=== PATIENT | female | born 1945 | race Caucasian/White ===

== ENCOUNTER 2017-11-13 22:12 | Emergency (ER) | payer MEDICARE, SELFPAY ==
[2017-11-13 22:14] VITALS: BP 205/95; PULSE 79; RESP 14; TEMP 36.8; O2SAT 96; BMI 28.4
--- NOTE | 2017-11-13 22:25 | CT_ITS ---
STUDY: CT ABDOMEN AND PELVIS WITH CONTRAST REASON FOR EXAM: Female, 72 years old. Back pain radiating to the anterior abdomen. RADIATION DOSAGE (If Supplied By Facility): CTDIvol = ( 14.90 ) mGy, DLP = ( 833.42 ) mGycm TECHNIQUE: Transaxial images were obtained from the dome of the diaphragm to the symphysis pubis without oral contrast. 100ML ml of Isovue 300 contrast was administered. Sagittal and coronal images were reconstructed. Individualized dose optimization techniques were used for this CT. COMPARISON: None. FINDINGS: The visualized lung bases are unremarkable. The visualized portions of the heart are within normal limits. There is mild fatty infiltration liver without focal mass. There is nonvisualization the gallbladder suggesting prior cholecystectomy. There is no biliary ductal dilatation. Normal spleen. Normal pancreas. Normal bilateral adrenal glands. There is a tiny cyst off the lower pole of an otherwise normal right kidney. Normal right ureter. Left kidney is enlarged. There is marked stranding of the perinephric fat and pararenal fascial planes. There is a small cortical cyst in the upper pole. There is marked hydronephrosis and ureterectasis to the UVJ where there is an obstructing 2 mm calculus (image 105, series 2). There is a type I hiatal hernia. Normal small intestine. Normal colon. The appendix is visualized and appears normal. There is diffuse atherosclerotic calcification of the abdominal aorta, without a demonstrated aneurysm. Normal inferior vena cava. Normal retroperitoneum. Normal urinary bladder. Normal vaginal cuff. There is no pelvic lymphadenopathy. No free air or free fluid is seen within the peritoneal cavity. Normal abdominal wall. There are diffuse degenerative changes of the visualized lumbar spine. CT/Abdomen/Pelvis W IV Cont ONLY IMPRESSION: 1. Left UVJ calculus with moderate obstructive uropathy. 2. Bilateral renal cysts. 3. Mild fatty infiltration of the liver. 4. Hiatal hernia. 5. Status post cholecystectomy and hysterectomy. Electronically Signed: Jak Solis DO at 23:46 EST Tel [phone], Service support ,
--- NOTE | 2017-11-13 22:26 | ED.VISSUMM ---
- ER Visit Summary Date of Service: 11/13/17 Chief Complaint: Back pain, abdominal pain History of Present Illness: The patient is a 72 F with history of htc-ttohlmy-nrzbxyfwo diabetes, hypertension, hyperlipidemia presents with atraumatic left-sided back pain that radiates into her left lower quadrant. Patient states she had the symptoms that began on Sunday. She states she has used an ice pack and it seemed to help. She denies any trauma. She states that tonight, after eating, the pain got worse. She states that it started radiating to her left lower quadrant. She describes the urge to move her bowels but has not been able to. She denies any fevers or chills. She states she has never had pain like this before. She denies any skin changes or rash. She has not found anything that has improved the pain. Patient has had prior hysterectomy and cholecystectomy, but no other back surgery. She denies any history of AAA. Physical Examination: Vital signs reviewed General: Well-nourished, well-developed Head: Normocephalic, atraumatic Eyes: Pupils equal and reactive, extraocular muscles intact Neck, supple, no lymphadenopathy Heart: Regular rate and rhythm Respiratory: No distress, clear bilaterally Abdomen: Soft, tender in the left lower quadrant without rebound or guarding, nondistended, no peritoneal signs Back: Nontender Extremities: Nontender, no edema, no cords Skin: Normal color no rash Neuro: Alert and oriented, no focal or lateralizing deficits Test Results: Screening labs relatively unremarkable. CT shows a 2 mm stone in the left right at the edge of the bladder with mild hydro-. Emergency Department Course and Treatment: She did have some tenderness in her left lower quadrant. Her symptoms were consistent with stone but she also had some constipation. I was concerned for diverticulitis. Patient was treated with IV analgesics and antiemetics with improvement of her symptoms. Screening labs are unremarkable. Her CT does demonstrate a 2 mm stone at the left bladder junction with mild hydro-. At this time, I do feel that the patient is safe for outpatient therapy. Her pain is controlled. She is tolerating p.o. She will be given a short course of analgesics and antiemetics. She is given urology follow-up. She was counseled on concerning symptoms and reasons to return. The patient will be discharged home. Treatment Plan: [] Disposition: Discharge Impression:. 2 mm left urolithiasis with mild hydronephrosis This note was generated with [employer] dictation software. It may contain incorrect words, spelling, and punctuation that were not noted in review of the chart prior to signing ED Disposition - Plan for ED Patient: Chief Complaint: Back Instructions: ED Stone Renal W Colic Prescriptions: Hydrocodone Bitart/Apap 5-325 [[place] 5/325] 1 tab PO Q6H PRN PRN 2 Days #6 tab PRN Reason: Pain Ondansetron [Zofran Odt] 4 mg PO Q8H PRN PRN #10 tab PRN Reason: Nausea Referrals: Wiley Goncalves MD [STAFF PHYSICIAN] -
[2017-11-13 22:42] LABS: Absolute Lymphocyte Count 1.43 X10^3/ul (0.83-4.51); Absolute Neutrophil Count 5.9 X10^3/uL (2.0-7.7); Basophil# 0.02 X10^3/uL; Basophil% 0.3 % (0-1); Eosinophil# 0.06 X10^3/uL; Eosinophils% 0.8 % (0-5); Hemoglobin 12.2 g/dl (12.0-15.0); Lymphocyte # 1.43 X10^3/ul (4.0); Lymphocyte % 18.2 % (19-41); Mean Corp Hgb Conc 32.1 g/gl (32-36); Mean Corpuscular Hgb 25.7 pg (27.0-32.0); Mean Platelet Vol. 9.4 fl (6.2-12.0); Monocyte# 0.44 X10^3/uL; Monocyte% 5.6 % (0-10); Neutrophil # 5.86 X10^3/uL (2.7-7.7); Neutrophil % 74.7 % (47-70); Platelet Count 196 K/mm3 (150-450); RBC Distribution Width CV 13.2 % (11.6-14.6); RBC Distribution Width SD 38.2 fl (35.1-43.9); Red Blood Count 4.75 M/mm3 (4.2-5.4); White Blood Count 7.8 K/mm3 (4.4-11.0)
[2017-11-13] MEDS: 0.9% Normal Saline 1,000 ML 1000 ML IV (22:43)
[2017-11-13] MEDS: Ondansetron 4 MG/2 ML Vial IV (22:43)
[2017-11-13 22:45] LABS: POSITIVE COUNT NO; POSITIVE DIFFERENTIAL NO; POSITIVE MORPHOLOGY NO
[2017-11-13 22:57] LABS: ALB/GLOB Ratio 1.3 RATIO (0.9-2.4); AST(SGOT) 16 U/L (15-37); Alanine Aminotransfer ALT/SGPT 21 U/L (13-56); Albumin, Serum 3.9 g/dL (3.2-5.0); Alkaline Phosphatase 105 U/L (45-117); Anion Gap 6 (5-15); BUN 20 mg/dL (7-18); BUN/Creat Ratio 18.9 RATIO (10-20); Calcium,Total 10.3 mg/dL (8.5-10.1); Chloride 106 mmol/L (98-107); Creatinine, Serum 1.06 mg/dL (0.55-1.02); EST Glomerular Filtration Rate 54 mL/min (>60); Est Glom Filt Rate - Afr Amer 66 mL/min (>60); Estimated Creatinine Clearance 42.04 ml/min; Globulin 3.1 g/dL (2.2-4.2); Glucose 243 mg/dL (74-106); Lipase 337 U/L (73-393); Potassium 4.1 mmol/L (3.5-5.1); Sodium Level 140 mmol/L (136-145)
[2017-11-13 22:57] LABS: Bacteria 0 SEEN /hpf (None Seen); Mucous, Urine 0 SEEN /hpf (<or=2+)
[2017-11-13 22:58] LABS: Color, Urine Straw (Yellow); Glucose, Dipstick 250 mg/dl (Normal); Ketone-Dipstick Negative (Negative); Leukocyte Esterase-Dipstick 25 /ul (Negative); Nitrite-Dipstick Negative (Negative); Occult Blood-Urine 10 /ul (Negative); Protein-Dipstick Negative (Negative); Urine Bilirubin Dipstick Negative (Negative); Urine Clarity Clear (Clear); Urine Urobilinogen Normal (Normal)
[2017-11-13 23:04] LABS: Squamous Epithelial Cells - UA 0-5 SEEN /hpf (5-10)
[2017-11-13 23:05] LABS: Red Blood Cells-Urine 0-5 SEEN /hpf (0-5); White Blood Cells 0-5 SEEN /hpf (0-5)
[2017-11-14] MEDS: HYDROcodone Bitartrate/Apap 5/325 Tablet PO (00:07)
[2017-11-14] MEDS: Ondansetron ODT 4 MG Tablet PO (00:08)
[2017-11-14 00:10] VITALS: BP 164/88; PULSE 81; RESP 18; O2SAT 93
== END 2017-11-14 00:11 | disposition home or self-care (01) ==
PROVIDERS: Emergency Provider Emergency Medicine; Family Provider Family Medicine; PCP Family Medicine
DX: N13.2 Hydronephrosis with renal and ureteral calculous obstruction (principal); E11.9 Type 2 diabetes mellitus without complications; I10 Essential (primary) hypertension; E78.5 Hyperlipidemia, unspecified; Z90.710 Acquired absence of both cervix and uterus; Z90.49 Acquired absence of other specified parts of digestive tract
CPT/HCPCS: 74177; 80053; 81001; 83690; 85025; 96361; 96374; 96375; 99284; J7030; Q9967; A4216; J2405

== ENCOUNTER 2018-06-09 20:11 | Emergency (ER) | payer MEDICARE, OTHER, SELFPAY ==
[2018-06-09 20:11] VITALS: BP 149/82; PULSE 83; RESP 18; TEMP 36.4; O2SAT 95; BMI 27.8
--- NOTE | 2018-06-09 20:22 | RAD_ITS ---
STUDY: X-RAY - LEFT FOOT CLINICAL: Female, 72 years old. Pain after fall. TECHNIQUE: 3 view(s) of the foot. COMPARISON: None. FINDINGS: There is generalized osteopenia. There is superior and inferior calcaneal spur Normal visualized subtalar, talonavicular, calcaneocuboid, tarsal and tarsometatarsal articulations. Normal metatarsi. Normal metatarsophalangeal joint of the great toe. Normal tibial and fibular sesamoid bones. Normal interphalangeal joint of the great toe. Normal phalanges of the great toe. Normal second through fifth metatarsophalangeal joints. Normal interphalangeal joints and phalanges of the lesser toes. The soft tissue structures are unremarkable. RAD/Foot min 3 Views IMPRESSION: No acute pathology. Electronically Signed: Issac Coles MD at 20:54 EDT , Service support ,
--- NOTE | 2018-06-09 20:28 | RAD_ITS ---
STUDY: X-RAY - LEFT KNEE REASON FOR EXAM: Female, 72 years old. Pain after fall TECHNIQUE: Four view(s) of the knee were obtained. COMPARISON: None. FINDINGS: There are small osteophytes on the distal femur. There are small osteophytes on the tibial plateau. There is moderate narrowing of the medial femorotibial compartment. There is mild narrowing of the lateral femorotibial compartment. There is chondrocalcinosis in both femorotibial compartments. There is mild degenerative arthrosis of the patellofemoral articulation. There is no fullness above the patella. The soft tissue structures are unremarkable. RAD/Knee 4 or More Views IMPRESSION: No acute abnormalities are seen in the left knee. There are moderate degenerative changes in the left knee with a medial predominance. Electronically Signed: Celia Moreno MD at 21:07 EDT Tel Direct: [phone], Service support ,
[2018-06-09 21:48] VITALS: BP 144/95; PULSE 82; RESP 14; O2SAT 94
--- NOTE | 2018-06-09 22:17 | RAD_ITS ---
STUDY: X-RAY - LEFT ANKLE REASON FOR EXAM: Female, 72 years old. Pain of the left ankle after falling. TECHNIQUE: 3 view(s) of the ankle. COMPARISON: None. FINDINGS: Normal visualized distal tibia and fibula. Normal medial and lateral malleoli. Normal tibiotalar articulation and ankle mortise. Normal talus. Dorsal enthesophyte and plantar spur of the calcaneus. The visualized subtalar, talonavicular, calcaneocuboid and tarsal articulations are normal. Lateral swelling. RAD/Ankle min 3 Views IMPRESSION: Lateral swelling without underlying fracture or dislocation. Electronically Signed: Charlee Galloway MD at 23:27 EDT , Service support ,
--- NOTE | 2018-06-09 23:59 | ED.DCSUM_ITS ---
- ER Visit Summary Date of Service: 06/09/18 Chief Complaint: Left lower extremity pain History of Present Illness: The patient is a 72 F presenting with left lower extremity pain. Patient was walking down the steps today she fell down approximately 3 steps after losing her footing. She fell forward. She did not hit her head or lose consciousness. She is not on blood thinners. This occurred several hours ago. She complains of persistent pain in the left lower extremity. She has taken ibuprofen today. Denies other injuries. Physical Examination: Vitals are stable. Patient is afebrile. Alert no acute distress. HEENT exam is unremarkable. Neck is nontender Lungs are clear and equal bilaterally. Heart is regular rate and rhythm. Abdomen is soft nontender nondistended. Extremities left ankle mild diffuse tenderness with mild swelling. AFROM. No pain with log rolling. Normal pulse. Skin is warm and dry. No focal neurologic deficit. Remainder of exam is unremarkable. Emergency Department Course and Treatment: X-ray of the left foot shows no acute process. X-ray left ankle shows lateral swelling without underlying fracture or dislocation. X-ray left knee shows no acute process. Patient is able to ambulate in the emergency department. She is advised to follow-up with her primary care physician. Advised return to ED for worsening complaints. Disposition: Discharge home Impression: Status post mechanical fall, left ankle injury This note was generated with [employer] dictation software. It may contain incorrect words, spelling, and punctuation that were not noted in review of the chart prior to signing ED Disposition - Plan for ED Patient: Chief Complaint: Lower Extremity Injury Referrals: Corazon Sharp [Primary Care Provider] -
--- NOTE | 2018-06-10 00:06 | ED.DEP ---
ED Disposition - Plan for ED Patient: Chief Complaint: Lower Extremity Injury Instructions: ED Sprain Ankle W X Ray Referrals: Corazon Sharp [Primary Care Provider] -
[2018-06-10 00:25] VITALS: BP 156/87; PULSE 60; RESP 15; O2SAT 98
== END 2018-06-10 00:26 | disposition home or self-care (01) ==
PROVIDERS: Emergency Provider Emergency Medicine; Family Provider Family Medicine; PCP Family Medicine
DX: S99.912A Unspecified injury of left ankle, initial encounter (principal); W10.9XXA Fall (on) (from) unspecified stairs and steps, initial encounter; Y93.89 Activity, other specified; Y92.9 Unspecified place or not applicable; Y99.9 Unspecified external cause status; E11.9 Type 2 diabetes mellitus without complications; I10 Essential (primary) hypertension; E78.00 Pure hypercholesterolemia, unspecified
CPT/HCPCS: 73564; 73610; 73630; 99283

== ENCOUNTER → 2018-07-24 09:03 | Outpatient (CLI) | payer MEDICARE, SELFPAY ==
[2018-07-24 11:59] LABS: Absolute Lymphocyte Count 1.82 X10^3/ul (0.83-4.51); Absolute Neutrophil Count 3.5 X10^3/uL (2.0-7.7); Basophil# 0.02 X10^3/uL; Basophil% 0.3 % (0-1); Eosinophil# 0.12 X10^3/uL; Hematocrit 37.2 % (37-47); Hemoglobin 11.7 g/dl (12.0-15.0); Lymphocyte # 1.82 X10^3/ul (4.0); Lymphocyte % 29.7 % (19-41); Mean Corp Hgb Conc 31.5 g/gl (32-36); Mean Corpuscular Volume 82.7 fL (81-99); Mean Platelet Vol. 11.2 fl (6.2-12.0); Monocyte# 0.66 X10^3/uL; Monocyte% 10.8 % (0-10); Platelet Count 207 K/mm3 (150-450); RBC Distribution Width CV 13.9 % (11.6-14.6); RBC Distribution Width SD 41.9 fl (35.1-43.9); White Blood Count 6.1 K/mm3 (4.4-11.0)
[2018-07-24 12:00] LABS: POSITIVE COUNT NO; POSITIVE DIFFERENTIAL NO; POSITIVE MORPHOLOGY NO
[2018-07-24 12:17] LABS: T3 Total - Triiodothyronine 0.79 ng/mL (0.6-1.81); Vitamin B12 440 pg/mL (211-911)
[2018-07-24 12:23] LABS: ALB/GLOB Ratio 1.2 RATIO (0.9-2.4); AST(SGOT) 10 U/L (15-37); Alanine Aminotransfer ALT/SGPT 22 U/L (13-56); Albumin, Serum 3.6 g/dL (3.2-5.0); Alkaline Phosphatase 102 U/L (45-117); Anion Gap 7 (5-15); BUN 26 mg/dL (7-18); BUN/Creat Ratio 24.1 RATIO (10-20); Calcium,Total 10.1 mg/dL (8.5-10.1); Chloride 108 mmol/L (98-107); Cholesterol 131 mg/dL (200); Creatinine, Serum 1.08 mg/dL (0.55-1.02); EST Glomerular Filtration Rate 53 mL/min (>60); Est Glom Filt Rate - Afr Amer 64 mL/min (>60); Ferritin 22 ng/mL (8-252); Globulin 3.1 g/dL (2.2-4.2); Glucose 150 mg/dL (74-106); High Density Lipoprotein 37 mg/dL; Iron 49 ug/dL (50-170); Potassium 4.4 mmol/L (3.5-5.1); Protein, Total 6.7 g/dL (6.4-8.2); Sodium Level 142 mmol/L (136-145); T4 Free Direct 1.15 ng/dL (0.76-1.46); Thyroid Stim Hormone (TSH) 1.79 uIU/mL (0.358-3.74); Triglycerides 313 mg/dL; Very Low Density Lipoprotein 63 mg/dL (5-40)
== END ==
PROVIDERS: Family Provider Family Medicine; PCP Family Medicine; Visit Provider Family Medicine
DX: D64.9 Anemia, unspecified (principal); E11.9 Type 2 diabetes mellitus without complications; E55.9 Vitamin D deficiency, unspecified; E78.5 Hyperlipidemia, unspecified; I10 Essential (primary) hypertension; R53.83 Other fatigue; E53.8 Deficiency of other specified B group vitamins
CPT/HCPCS: 36415; 80053; 80061; 82306; 82607; 82728; 82746; 83540; 84439; 84443; 84480; 85025

== ENCOUNTER 2018-12-25 15:01 | Emergency (ER) | payer MEDICARE, SELFPAY ==
[2018-12-25 15:02] VITALS: BP 197/89; PULSE 78; RESP 16; TEMP 36.2; BMI 27.1
--- NOTE | 2018-12-25 15:24 | RAD_ITS ---
STUDY: X-RAY - LEFT KNEE REASON FOR EXAM: Female, 73 years old. Pain. Fall. TECHNIQUE: 4 view(s) of the knee. COMPARISON: None. FINDINGS: There is demineralization of the visualized distal femur. There is demineralization of the tibia and fibula. Normal proximal tibiofibular articulation. There is no demonstrated fracture. There is mild degenerative arthrosis of the medial femorotibial compartment. There is chondrocalcinosis of the lateral femorotibial compartment. There is mild degenerative arthrosis of the patellofemoral articulation. The soft tissue structures are unremarkable. RAD/Knee 4 or More Views IMPRESSION: Arthritic change with chondrocalcinosis. Electronically Signed: Isaias Lamb MD at 16:38 EDT , Service support ,
--- NOTE | 2018-12-25 15:24 | CT_ITS ---
STUDY: CT BRAIN WITHOUT CONTRAST REASON FOR EXAM: Female, 73 years old. History of fall. RADIATION DOSAGE (If Supplied By Facility): CTDIvol = ( 44.99 ) mGy, DLP = ( 779.24 ) mGycm TECHNIQUE: Transaxial CT imaging of the brain was performed without administration of intravenous contrast material. Individualized dose optimization techniques were used for this CT. COMPARISON: No relevant priors. FINDINGS: Normal soft tissue structures. Normal calvarium. There is mild cerebral atrophy with widening of the extra-axial spaces and ventricular dilatation. There are areas of decreased attenuation within the white matter tracts of the supratentorial brain, consistent with microvascular disease changes. Normal basal ganglia and thalami. Normal brainstem. Normal cerebellum. There is no intracranial hemorrhage. There are no findings of an acute ischemic infarction. Normal visualized paranasal sinuses. CT/Brain/Head without Contrast IMPRESSION: Chronic involutional changes of the brain. Electronically Signed: Jesse Grider, at 16:03 EDT , Service support ,
--- NOTE | 2018-12-25 15:24 | CT_ITS ---
STUDY: CT CERVICAL SPINE WITHOUT CONTRAST REASON FOR EXAM: Female, 73 years old. Status post fall hitting nose on ground RADIATION DOSAGE (If Supplied By Facility): CTDIvol = ( 21.62 ) mGy, DLP = ( 527.74 ) mGycm TECHNIQUE: High resolution transaxial imaging was performed without contrast material. Sagittal and coronal images were reconstructed. Individualized dose optimization techniques were used for this CT. COMPARISON: None FINDINGS: Normal craniovertebral junction. There are degenerative changes of the anterior atlantoaxial articulation. Normal odontoid process. Normal cervical lordosis. Normal vertebral bodies and posterior osseous elements. There is no acute fracture. C2-3: Disc bulge. Normal central canal and intervertebral neuroforamina. C3-4: Disc bulge. Normal central canal and intervertebral neuroforamina. C4-5: Disc space narrowing with endplate changes. Disc bulge and spurring the right narrowing the right lateral recess. Normal central canal and intervertebral neuroforamina. C5-6: Disc bulge and spurring flattening the thecal sac. Facet spurring. Normal central canal and intervertebral neuroforamina. C6-7: Disc space narrowing with endplate changes. Disc bulge and spurring flattening thecal sac. Uncovertebral spurring with mild foraminal narrowing. C7-T1: Normal endplates. Normal disc height and morphology. Normal central canal and intervertebral neuroforamina. Normal visualized soft tissue structures. CT/Spine Cervical without Contras IMPRESSION: Multilevel degenerative changes, as described above. Electronically Signed: Isaias Lamb MD at 16:23 EDT , Service support ,
--- NOTE | 2018-12-25 15:31 | ED.DCSUM_ITS ---
- ER Visit Summary Date of Service: 12/25/18 Chief Complaint: Fall History of Present Illness: The patient is a 73 F who presents the emergency department following a mechanical fall. [place] the bank on the sidewalk when there is a lifted area of the sidewalk concrete and she tripped over it and fell forward. She landed on her knees her palms and struck her face. She states she broke her glasses. She is notes abrasion to the nose and tenderness. No loss of conscious. She has bilateral palm abrasions and bilateral knee pain and abrasions notes that her neck is sore in the right side particularly with movement. The patient was able to get up and was assisted to her vehicle though she notes is painful to walk. Not on any blood thinners Physical Examination: Afebrile vital signs are stable Gen: Well-nourished well-developed Head: Normocephalic nasal abrasion and contusion no septal hematoma Eyes: Perrl EOMI ENT: TMs clear no rhinorrhea moist mucous membranes Neck: Supple no lymphadenopathy no JVD there is palpation in the mid cervical region and right paraspinal musculature CVS: Regular rate rhythm no murmurs normal S1-S2 Respiratory: No distress clear to auscultation bilaterally chest nontender Abdomen: Soft nontender nondistended normal bowel sounds no masses Back: Nontender Extremity: There is bilateral thenar eminence abrasions. There is full range of motion of the thumb. There are bilateral knee contusions and abrasions. The right knee injury appears directly over the patella while the left is inferior medially to the patella. Extensor mechanisms are intact. Skin: Normal color no rash Neuro: alert orientated ?3 CN II-XII intact normal strength sensation reflexes gait cerebellar Psych: Normal affect normal mood Test Results: CT the head and cervical spine was obtained. Bilateral knee films were also obtained. These were negative for fracture or for hemorrhage. Emergency Department Course and Treatment: Wounds were cleansed and dressed. The right knee which is her most painful was placed in an Miles wrap as well. She is given Tylenol for pain. Recommend supportive care return if worsening or concerns Impression: 1. Mechanical fall 2. Facial and nose contusion and abrasion 3. Bilateral hand abrasion and contusion 4. Bilateral knee contusion and abrasion 5. Cervical muscle strain This note was generated with [employer] software. It may contain incorrect words, spelling, and punctuation that were not noted in review of the chart prior to signing ED Disposition - Plan for ED Patient: Disposition: Home or Assisted Living Instructions: ED Contusion Face, ED Abrasion Referrals: Corazon Sharp [Primary Care Provider] - 1 Week if not improving
[2018-12-25] MEDS: Acetaminophen 500 MG Tablet 1000 MG PO (15:35)
--- NOTE | 2018-12-25 16:04 | RAD_ITS ---
STUDY: X-RAY - RIGHT KNEE REASON FOR EXAM: Female, 73 years old. Pain. Fall TECHNIQUE: 4 view(s) of the knee. COMPARISON: None. FINDINGS: There is demineralization of the visualized distal femur. Spurring of the medial femoral condyle. There is demineralization of the tibia and fibula. Normal proximal tibiofibular articulation. Chondrocalcinosis of the medial femorotibial compartment and lateral femorotibial compartment. Normal patellofemoral articulation. The soft tissue structures are unremarkable. RAD/Knee 4 or More Views IMPRESSION: No acute fracture. Chondrocalcinosis. Electronically Signed: Isaias Lamb MD at 16:36 EDT , Service support ,
[2018-12-25 16:47] VITALS: BP 180/87; PULSE 83; RESP 16; O2SAT 92
== END 2018-12-25 16:57 | disposition home or self-care (01) ==
PROVIDERS: Emergency Provider Emergency Medicine; Family Provider Family Medicine; PCP Family Medicine
DX: S00.33XA Contusion of nose, initial encounter (principal); S60.222A Contusion of left hand, initial encounter; S60.221A Contusion of right hand, initial encounter; S80.02XA Contusion of left knee, initial encounter; S80.01XA Contusion of right knee, initial encounter; S16.1XXA Strain of muscle, fascia and tendon at neck level, initial encounter; W01.198A Fall on same level from slipping, tripping and stumbling with subsequent striking against other object, initial encounter; Y93.89 Activity, other specified; Y92.480 Sidewalk as the place of occurrence of the external cause; Y99.9 Unspecified external cause status; E11.9 Type 2 diabetes mellitus without complications; I10 Essential (primary) hypertension; E78.00 Pure hypercholesterolemia, unspecified; K21.9 Gastro-esophageal reflux disease without esophagitis; F32.9 Major depressive disorder, single episode, unspecified; F41.9 Anxiety disorder, unspecified
CPT/HCPCS: 70450; 72125; 73564; 99283

== ENCOUNTER → 2018-12-31 14:14 | Outpatient (CLI) | payer MEDICARE, SELFPAY ==
[2018-12-25 15:02] VITALS: BMI 27.1
--- NOTE | 2018-12-31 14:23 | RAD_ITS ---
STUDY: X-RAY - LEFT WRIST REASON FOR EXAM: Pain, bruising and swelling, fell last Sunday. TECHNIQUE: 3 view(s) of the wrist were obtained. COMPARISON: None. FINDINGS: There is osteopenia. Normal visualized distal radius and ulna. Normal radiocarpal articulation. Normal distal radioulnar articulation. Normal carpal bones. Normal carpal articulations. Normal carpometacarpal articulation of the thumb. Normal second through fifth carpometacarpal articulations. Normal visualized metacarpal bones. There is chondrocalcinosis in the triangular fibrocartilage and lunotriquetral ligament. RAD/Wrist min 3 Views IMPRESSION: Osteopenia. Chondrocalcinosis. No demonstrated fracture. Electronically Signed: Patrice Bhatt MD at 15:42 EDT Tel , Service support ,
== END ==
PROVIDERS: Family Provider Family Medicine; PCP Family Medicine; Referring Provider Family Medicine; Visit Provider Family Medicine
DX: M79.89 Other specified soft tissue disorders (principal); W19.XXXA Unspecified fall, initial encounter; R52 Pain, unspecified
CPT/HCPCS: 73110

== ENCOUNTER → 2019-06-27 07:54 | Outpatient (CLI) | payer MEDICARE, SELFPAY ==
[2019-06-27 08:27] LABS: Absolute Lymphocyte Count 1.64 X10^3/uL (0.83-4.51); Absolute Neutrophil Count 3.3 X10^3/uL (2.0-7.7); Basophil# 0.03 X10^3/uL; Basophil% 0.5 % (0-1); Eosinophil# 0.07 X10^3/uL; Eosinophils% 1.3 % (0-5); Hematocrit 35.3 % (37-47); Hemoglobin 11.3 g/dL (12.0-15.0); Lymphocyte # 1.64 X10^3/ul (4.0); Lymphocyte % 29.4 % (19-41); Mean Corpuscular Volume 81.3 fL (81-99); Mean Platelet Vol. 9.9 fl (6.2-12.0); Monocyte# 0.53 X10^3/uL; Monocyte% 9.5 % (0-10); NRBC Flagged by Analyzer 0 % (0-5); Neutrophil # 3.29 X10^3/uL (2.7-7.7); Neutrophil % 59.1 % (47-70); Platelet Count 208 K/mm3 (150-450); RBC Distribution Width CV 13.3 % (11.6-14.6); Red Blood Count 4.34 M/mm3 (4.2-5.4); White Blood Count 5.6 K/mm3 (4.4-11.0)
[2019-06-27 08:46] LABS: Microalbumin,Random Urine 27.9 mg/L (NO RANGE EST.); Microalbumin:Creatinine Ratio 30.1 mg/g CRE (<30 mg/g CRE)
[2019-06-27 08:59] LABS: Hemoglobin A1c 6.1 % (4.2-6.3)
[2019-06-27 09:01] LABS: ALB/GLOB Ratio 1.1 RATIO (0.9-2.4); AST(SGOT) 13 U/L (15-37); Alanine Aminotransfer ALT/SGPT 17 U/L (13-56); Albumin, Serum 3.4 g/dL (3.2-5.0); Alkaline Phosphatase 97 U/L (45-117); Anion Gap 6 (5-15); BUN 13 mg/dL (7-18); BUN/Creat Ratio 15.7 RATIO (10-20); Calcium,Total 10.1 mg/dL (8.5-10.1); Chloride 108 mmol/L (98-107); Cholesterol 201 mg/dL (200); Creatinine, Serum 0.83 mg/dL (0.55-1.02); EST Glomerular Filtration Rate 72 mL/min (>60); Est Glom Filt Rate - Afr Amer 87 mL/min (>60); Globulin 3.1 g/dL (2.2-4.2); Glucose 144 mg/dL (74-106); High Density Lipoprotein 38 mg/dL; Iron 43 ug/dL (50-170); Potassium 3.6 mmol/L (3.5-5.1); Protein, Total 6.5 g/dL (6.4-8.2); Sodium Level 143 mmol/L (136-145); Triglycerides 410 mg/dL
[2019-06-27 09:03] LABS: Vitamin D,25 Hydroxy 11.7 ng/mL (29.95-100.01)
== END ==
PROVIDERS: Family Provider Family Medicine; PCP Family Medicine; Referring Provider Family Medicine; Visit Provider Family Medicine
DX: E11.9 Type 2 diabetes mellitus without complications (principal); I10 Essential (primary) hypertension; E55.9 Vitamin D deficiency, unspecified; E78.5 Hyperlipidemia, unspecified; D64.9 Anemia, unspecified; Z51.81 Encounter for therapeutic drug level monitoring
CPT/HCPCS: 36415; 80053; 80061; 82043; 82306; 82570; 83036; 83540; 85025

== ENCOUNTER → 2020-08-19 10:03 | Outpatient (CLI) | payer MEDICARE, SELFPAY ==
[2020-08-19 12:26] LABS: Absolute Lymphocyte Count 1.71 X10^3/uL (0.83-4.51); Absolute Neutrophil Count 3.1 X10^3/uL (2.0-7.7); Basophil# 0.04 X10^3/uL; Basophil% 0.7 % (0-1); Eosinophil# 0.08 X10^3/uL; Eosinophils% 1.5 % (0-5); Hematocrit 36.4 % (37-47); Hemoglobin 11.7 g/dL (12.0-15.0); Lymphocyte # 1.71 X10^3/ul (4.0); Lymphocyte % 31.5 % (19-41); Mean Corp Hgb Conc 32.1 g/dL (32-36); Mean Corpuscular Hgb 27.1 pg (27.0-32.0); Mean Corpuscular Volume 84.3 fL (81-99); Mean Platelet Vol. 11.2 fl (6.2-12.0); Monocyte# 0.51 X10^3/uL; Monocyte% 9.4 % (0-10); NRBC Flagged by Analyzer 0 % (0-5); Neutrophil # 3.07 X10^3/uL (2.7-7.7); Neutrophil % 56.5 % (47-70); Platelet Count 199 K/mm3 (150-450); RBC Distribution Width CV 12.8 % (11.6-14.6); RBC Distribution Width SD 38.9 fl (35.1-43.9); Red Blood Count 4.32 M/mm3 (4.2-5.4); White Blood Count 5.4 K/mm3 (4.4-11.0)
[2020-08-19 12:50] LABS: ALB/GLOB Ratio 1.1 RATIO (0.9-2.4); AST(SGOT) 14 U/L (15-37); Alanine Aminotransfer ALT/SGPT 28 U/L (13-56); Albumin, Serum 3.6 g/dL (3.2-5.0); Alkaline Phosphatase 124 U/L (45-117); Anion Gap 7 (5-15); BUN 30 mg/dL (7-18); Calcium,Total 10.9 mg/dL (8.5-10.1); Chloride 108 mmol/L (98-107); EST Glomerular Filtration Rate 47 mL/min (>60); Est Glom Filt Rate - Afr Amer 57 mL/min (>60); Ferritin 22 ng/mL (8-252); Globulin 3.2 g/dL (2.2-4.2); Glucose 199 mg/dL (74-106); Iron 58 ug/dL (50-170); Potassium 4.2 mmol/L (3.5-5.1); Protein, Total 6.8 g/dL (6.4-8.2); Sodium Level 138 mmol/L (136-145)
== END ==
PROVIDERS: PCP Family Medicine; Visit Provider Family Medicine
DX: I50.9 Heart failure, unspecified (principal); D50.9 Iron deficiency anemia, unspecified; N18.4 Chronic kidney disease, stage 4 (severe)
CPT/HCPCS: 36415; 80053; 82728; 83540; 85025

== ENCOUNTER → 2020-09-16 07:54 | Outpatient (CLI) | payer MEDICARE, SELFPAY ==
--- NOTE | 2020-09-16 08:16 | BI_ITS ---
MAMMOGRAPHY - BILATERAL SCREENING REASON FOR EXAM: Female, 74 years old. Routine annual screening examination. PERTINENT HISTORY: Non-contributory. History of prior bilateral excisional breast biopsies. TECHNIQUE: Digital bilateral breast john (3D mammographic acquisition) in the CC and MLO projections. 2-D mediolateral oblique (MLO) and craniocaudad (CC) views of both breasts were obtained. CAD: Full Field Digital Mammography with Computer Added Detection was performed. COMPARISON: Comparison is made with prior study dated 10/15/2014. FINDINGS: Breast Composition: The breasts are heterogeneously dense, which may obscure small masses. There are no dominant masses or suspicious calcifications. No other significant abnormalities are identified. There has been no significant change since the prior study. BI/SCREEN MAMM (CAD) W/JOHN BILAT IMPRESSION: Stable bilateral screening mammogram. Yearly follow-up mammogram recommended. (A) ASSESSMENT CATEGORY: BIRADS Category 1: Negative. A letter regarding these results will be sent to the patient by the facility within 30 days. Approximately 10% of breast cancers are not detected by mammography. A normal mammogram should not delay biopsy of a clinically suspicious abnormality. [id number] Electronically Signed: Jesse Grider, at 10:24 EST , Service support ,
== END ==
PROVIDERS: PCP Family Medicine; Referring Provider Family Medicine; Visit Provider Family Medicine
DX: Z12.31 Encounter for screening mammogram for malignant neoplasm of breast (principal)
CPT/HCPCS: 77063; 77067

== ENCOUNTER → 2020-12-17 13:12 | Outpatient (CLI) | payer MEDICARE, SELFPAY ==
--- NOTE | 2020-12-17 13:23 | RAD_ITS ---
STUDY: X-RAY - RIGHT SHOULDER REASON FOR EXAM: Female, 75 years old. R SHOULDER PAIN TECHNIQUE: 4 view(s) of the shoulder. COMPARISON: None. FINDINGS: Normal glenohumeral articulation. Normal acromioclavicular joint. Normal acromion. Normal humeral head and visualized proximal humerus. The soft tissue structures are unremarkable. There is no demonstrated fracture. Normal visualized pulmonary apex. RAD/Shoulder min 2 Views IMPRESSION: Normal x-ray examination of the shoulder. Electronically Signed: Pedrito Ferguson MD at 23:54 EDT , Service support ,
== END ==
PROVIDERS: PCP Family Medicine; Referring Provider Family Medicine; Visit Provider Family Medicine
DX: M25.511 Pain in right shoulder (principal); Z91.81 History of falling
CPT/HCPCS: 73030

== ENCOUNTER 2021-01-27 09:30 | Outpatient (RCR) | payer MEDICARE, SELFPAY ==
--- NOTE | 2021-01-03 15:39 | HP.PTEVAL_ITS ---
Patient's Visit Information EULALIA LUONG is a 75 year old F referred to Physical Therapy by Dr. Corazon Sharp DO with a diagnosis of R shoulder pain. Date of Evaluation: 01/03/21 Physical Therapist: Mohit Nuno DPT - Visit Plan Frequency: 2x /Week Duration: 4 Weeks Plan: R shoulder strengthening and scapular stabilizing exercises; isometrics/progress to resistance strengthening as tolerated. - Subjective Pt. has R shoulder pain ever since she fell in Jun, she was trying to rearrange her bedroom and fell while moving her mattress. She has a recent dx of dementia. Pain has continued to worsen since June. She tends to sleep with arms up above head, and she has tried to limit that. Pain is located along the lateral portion of shoulder off of the acromion and is increased when abducting/flexing shoulder. Mopping and doing dishes will cause her pain to increase. BioFreeze has helped decrease her pain. No numbness or tingling into arm/hands. She states the pain is constant. She does not work currently. Goal: To decrease her pain in the R shoulder. - Pain R shoulder Pain Intensity (Out of 10): 8 Pain Intensity Range: 8, 10 - Objective Neuro: WNL sensation bilaterally; biceps tendon reflex 2/3. ROM: AROM: L shouler Flex: 145 degrees R shoulder Flex: 150 degrees L shoulder abd: 148 degrees R shoulder abd: 125 degrees L ER: 43 degrees R ER: 38 degrees. Painful in R shoulder when lowering arm down from flex or abduction. MMT: L shoulder flex: 5/5 R shoulder flex: 3+/5 L shoulder abd: 5/5 R shoulder abd: 3+/5 L shoulder ER: 3+/5 R shoulder ER: 4-/5 L shoulder IR: 5-/5 R shoulder IR: 5-/5. palpation: Tender to light touch at AC joint, supraspinatus tendon region. empty can: Postive. Marco graff: positive. Gave her HEP program on isometric strengthening of the R shoulder; ER rotation hold and flexion increased her pain. - Goals Goal 1:: STG: Decrease pain by 50% to aid with washing dishes. Goal Time Frame: 2-4 Weeks Goal 2:: LTG: Increase R shoulder strength by 1-2 muscle grades to aid with ADLs. Goal Time Frame: 4-6 Weeks Goal 3:: LTG: I with HEP. Goal Time Frame: 2-4 Weeks Goal 4:: LTG: Decrease R shoulder pain by 75% to aid with ADLs. Goal Time Frame: 4-6 Weeks - Rehabilitation Potential Physical Therapy Diagnosis: Pain and weakness secondary to right shoulder pain, seems to be due to mechanical fall that occured last year. Pt. has high levels pain and difficult to rule out tear vs strain. Rehabilitation Potential: Good - Anticipated Interventions Patient/Client Instruction: Educate patient on: Condition, Plan of Care For the Purpose of:: To decrease pain, To decrease swelling/inflammation, To increase ROM, To improve muscle performance and motor function, To improve ability to perform ADL's, To increase flexibility/ROM, To improve self management Therapeutic Exercise to Include: Strength training, Postural training, Flexibilty training, Passive ROM, Active ROM, Scapular Strength/Stabilization For the Purpose of:: To decrease pain, To decrease swelling/inflammation, To increase ROM, To improve muscle performance and motor function, To improve ability to perform ADL's, To increase flexibility/ROM, To improve self management Manual Therapy Techniques to Include: Passive ROM For the Purpose of:: To decrease pain, To decrease swelling/inflammation, To increase ROM, To improve ability to perform ADL's Cryotherapy (ice pack, ice massage): Yes Thermo therapy (hot pack): Yes Ultrasound (thermal/non thermal): Yes For the Purpose of:: To decrease pain, To decrease swelling/inflammation Thank you for the opportunity to evaluate your patient. For Medicare and Medicare HMO plans, please review the plan of care and approve it. It will need to be FAXED BACK to us at [phone] for Medicare purposes. For Medicare only, by signing this I certify the plan of care. Please let me know if there are questions or concerns regarding this plan of care. Physician Sig nature: Date:
--- NOTE | 2021-01-28 08:12 | HP.PTDCSUM ---
It has been my pleasure to treat EULALIA LUONG referred by Dr. Corazon Sharp DO, with the diagnosis of R shoulder pain for a total of 6 visit(s). Discharge Date: 01/27/21 Please see the following information for a summary of their discharge status. Subjective: The pt. states that she is not having pain and felt good after the last PT visit. R shoulder Pain Intensity (Out of 10): 0 % Improvement: 85 Objective/Function: The pt. progressed very well here at PT. She is showing minimal limitations in shoulder ER strength and shoulder flexion strength and will continue to strengthen at home on her own. The pt. does not report having pain in the R shoulder and can tolerate all strengthening exercises well. ROM: Shoulder abduction ROM bilat WNL, shoulder flexion ROM bilat WNL, R ER ROM WNL, R IR ROM WNL, pt. was able to reach behind her back and over her head without pain. MMT: shoulder flexion R 3+/5, L 5/5, shoulder abduction bilat 5/5, ER R 4/5, L 5/5, IR bilat 5/5 Goal 1:: STG: Decrease pain by 50% to aid with washing dishes. Goal Progress: Goal Met Goal 2:: LTG: Increase R shoulder strength by 1-2 muscle grades to aid with ADLs. 01/27/2021: Pt. will continue to strengthen her R ER and shoulder flexion on her own. All other shoulder strength goals were met. Goal Progress: Progressing Goal 3:: LTG: I with HEP. Goal Progress: Goal Met Goal 4:: LTG: Decrease R shoulder pain by 75% to aid with ADLs. Goal Progress: Goal Met Plan: The pt. will be independent with her HEP and will be discharged today. The pt. will call if she starts having her pain in her shoulder again. Discharge Comments: Pt. did well with PT. Pt. was treated initially with ROM exercises then progressed to active/strengthening exercises of her deltoid and RTC. pt. progessed very well and is having minimal issues at this point in time. She still does present with some supraspinatus muscle atrophy and delotid weakness and would benefit from continued strengthening her to reduce risk for future injury. Pt given HEP to cover this. Pt. will be DC from PT at this point in time. If there are questions or concerns regarding this patient's physical therapy, please feel free to call me at [phone]. Thank you for the referral of this patient. Sincerely, RAGHAV JoyaT
== END 2021-01-27 19:00 | disposition home or self-care (01) ==
LOC: PT 09:30
PROVIDERS: PCP Family Medicine; Referring Provider Family Medicine; Visit Provider Family Medicine
DX: M25.511 Pain in right shoulder (principal)
CPT/HCPCS: 97110; 97161; 97164; 97530

== ENCOUNTER → 2022-03-27 | Outpatient (CLI) | payer MEDICARE, SELFPAY ==
[2022-03-31 09:08] LABS: Alternaria tenuis <0.10 kU/L (Class 0); Ash, White <0.10 kU/L (Class 0); Aspergillus fumigatus <0.10 kU/L (Class 0); Bermuda Grass <0.10 kU/L (Class 0); Birch <0.10 kU/L (Class 0); Black Walnut <0.10 kU/L (Class 0); Cat Hair / Dander,Stand <0.10 kU/L (Class 0); Cedar, Mountain <0.10 kU/L (Class 0); Cladosporium herbarum <0.10 kU/L (Class 0); Cockroach, American <0.10 kU/L (Class 0); Cottonwood <0.10 kU/L (Class 0); D farinae Mite <0.10 kU/L (Class 0); D pteronyssinus <0.10 kU/L (Class 0); Dog Epithelia <0.10 kU/L (Class 0); Elm, American White <0.10 kU/L (Class 0); Immunoglobulin E 2 IU/mL (6-495); Maple/Box Elder <0.10 kU/L (Class 0); Mulberry, White <0.10 kU/L (Class 0); Oak, White <0.10 kU/L (Class 0); Pecan <0.10 kU/L (Class 0); Penicillium Notatum <0.10 kU/L (Class 0); Pigweed, Rough <0.10 kU/L (Class 0); Ragweed, Short/Common <0.10 kU/L (Class 0); Russian Thistle <0.10 kU/L (Class 0); Sheep Sorrel <0.10 kU/L (Class 0); Sycamore, American <0.10 kU/L (Class 0); Timothy Grass <0.10 kU/L (Class 0)
[2022-04-01 22:52] LABS: Mouse Urine <0.10 kU/L (Class 0)
== END | disposition home or self-care (01) ==
LOC: LABSPEC 15:30 → LAB 15:34
PROVIDERS: PCP Family Medicine; Visit Provider Otolaryngology
DX: T78.40XA Allergy, unspecified, initial encounter (principal)
CPT/HCPCS: 36415; 82785; 86003

== ENCOUNTER 2022-12-11 13:57 | Emergency (ER) | payer MEDICARE, SELFPAY ==
[2022-12-11 13:58] VITALS: BP 138/96; PULSE 72; RESP 16; TEMP 36.6; O2SAT 97
--- NOTE | 2022-12-11 15:15 | EDS_ITS ---
HPI HPI - GI History of Present Illness Chief Complaint: Nausea/Vomiting Detail of Chief Complaint: Constipation Informant: patient and family Abdominal Pain/Flank Pain Onset: Days Context: Gradual Onset Timing: Intermittent Current Severity: Mild Maximum Severity: Mild Nausea/Vomiting/Emesis GI Symptom: Positive for Nausea and Vomiting Onset: Days Quality: Positive for Nonbilious Severity: Mild Diarrhea/Melena/Hematochezia GI Symptom: Negative for Diarrhea, Melena or Hematochezia Associated Symptoms Associated Symptoms: Negative for Dysuria, Frequency or Hematuria Narrative Narrative: 73-year-old female history of dementia, hypertension diabetes. States she has been constipated for a week with no significant bowel movement. In the last several days has developed nausea and vomiting. She has never had a bowel obstruction. Prior hysterectomy and cholecystectomy. No dysuria. Prior similar symptoms: No Recent Illness/Hospitalization: No PFSH PFSH Home Medications Verapamil Hcl [Verapamil Er] 180 mg PO DAILY 07/17/16 [History Last Taken Unknown] fluoxetine 20 mg capsule 80 mg PO DAILY 07/17/16 [History Last Taken Unknown] glimepiride 4 mg tablet 4 mg PO DAILY 07/17/16 [History Last Taken Unknown] metformin 1,000 mg tablet 1,000 mg PO BIDCM 07/17/16 [History Last Taken Unknown] atorvastatin 40 mg tablet 40 mg PO QHS 11/13/17 [History Last Taken Unknown] Ranitidine [Zantac] 150 mg PO BID 06/09/18 [History Last Taken Unknown] ondansetron 4 mg disintegrating tablet 4 mg PO Q6H PRN nausea and vomiting #7 tabs 12/11/22 [Rx Last Taken Unknown] Allergy/AdvReac Type Severity Reaction Status Date / Time No Known Allergies Allergy Verified 12/11/22 13:58 Social History Smoking Status: Never smoker ROS ROS ED ROS Narrative Constipation. Nausea vomiting. Review of Systems ROS Unobtainable: Denies due to encephalopathy Constitutional Constitutional ED: Denies chills or fever(s) ENT ENT ED: Denies ear pain Cardiovascular Cardiovascular: Denies chest pain Respiratory/Chest Respiratory/Chest: Denies cough or dyspnea Gastrointestinal Gastrointestinal: Reports constipation, nausea and vomiting; Denies diarrhea or melena Genitourinary Genitourinary ED: Denies dysuria or hematuria Musculoskeletal Musculoskeletal: Denies arthralgias Integumentary Denies abscess or Abrasions Neurologic Neurologic: Denies headache(s) Psychiatric Psychiatric: Denies anxiety or depression Endocrine Endocrinology: Denies polydipsia Hematologic/Lymphatic Hematologic/Lymphatic: Denies easy bleeding Allergic/Immunologic Allergic/Immunologic ED: Denies mouth swelling or tongue swelling EXAM Physical Exam Narrative Exam Narrative: 77-year-old female vital signs stable afebrile. Does not look septic or toxic. No distress. Family member present in room. H EENT exam unremarkable. Neck nontender no JVD. No lymphadenopathy. Lungs clear to auscultation bilaterally. Heart regular rhythm no murmur rate about 70. Abdomen soft nondistended normal bowel sounds no peritoneal signs. Nontender. There is no tympany. Moving all 4 extremities. Nontender. No edema. Neurologically she is awake alert. Has dementia but answering questions following commands. Const Vital Signs: 12/11/22 13:58 12/11/22 15:58 Temperature 97.9 F Temperature Source Temporal Pulse Rate 72 84 Respiratory Rate 16 16 Blood Pressure 138/96 H Blood Pressure Mean 110 Pulse Ox 97 Oxygen Delivery Method Room Air Positive well nourished and well developed; Negative for cachectic, contractures or unkempt General Appearance ED: well developed and NAD; Negative for unkempt, cachectic, contractures or pallor Nutritional Appearance: Negative for cachectic HEENT Reports moist mucous membranes normocephalic and atraumatic; Negative for trauma or tenderness Eyes PERRL and EOMs intact bilaterally General Eye ED: Negative for pale conjunctiva or scleral icterus Neck no lymphadenopathy, supple and no JVD General: Negative for tenderness Carotids: Negative for other Lymph Lymphatic: Negative for other Resp normal respiratory effort and clear to auscultation bilaterally Effort and Inspection: Negative for respiratory distress Auscultation: Negative for rales, rhonchi or wheezes Cardio regular rate, regular rhythm, S1 normal heart sound, S2 normal heart sound and no murmurs Rate: Negative for bradycardia or tachycardic Rhythm: Negative for abnormal rhythm GI non-tender, non-distended and no masses Inspection: Negative for abdominal distention Palpation: soft; Negative for tender, guarding, rigid, hepatomegaly, splenomegaly, hernia, mass, pulsatile mass or rebound tenderness present Back/Spine no CVA tenderness General Back: Negative for CVA tenderness Cervical Spine: Negative for cervical spine tenderness Thoracic Spine / Upper Back: Negative for thoracic spinal tenderness Lumbar Spine / Lower Back: Negative for lumbar spinal tenderness Extremity full ROM General Extremety ED: Negative for edema or tenderness General Extremity: Negative for edema Neuro CN's II-XII intact bilaterally and moves all extremities Sensorium / Orientation: alert and oriented to person Motor Exam: strength 5/5 throughout Psych mental status grossly normal and thought process normal Appearance: Negative for unkempt Attitude: No agitated Mood & Affect: Negative for depressed, anxious or tearful Skin no wounds General Skin Exam: Negative for jaundice or pallor Lesions: no lesions Rashes: no rashes Trauma: Negative for abrasion Nails: Negative for discolored MDM MDM MDM Narrative Medical decision making narrative: 77-year-old female with constipation and nausea vomiting. Clinically does not appear to be a bowel obstruction. Her abdomen is benign. Screening labs were ordered in triage awaiting those. I added a KUB. She will be given IV Zofran and IV fluids. Repeat exam at 4:57 PM. Patient still has abdominal discomfort. She is given a second dose of Zofran for nausea. I went over labs with both her and her family. I am going to obtain a CT abdomen pelvis to rule out any further pathology. This could all be from constipation versus other etiologies. The patient and the CAT scan results be checked out to the afternoon physician. If the CAT scan does not show anything significant she can be discharged home with a prescription for Zofran. History & Record Review Discussion w/independent historian: Patient and Family Lab Data Attestation: I reviewed the patient's lab results. Lab results narrative: CBC shows a white count 8.3. H&H 15.4 and 47.5. Platelets 230. Electrolytes show sodium 134. Gap of 5 BUN 27 creatinine 1.1. Glucose 149. Urinalysis do not positive nitrites 0-5 red cells. 5-10 white cells rare bacteria. She is having no urinary symptoms. A culture will be sent prior to any antibiotic therapy. Labs: Laboratory Results - last 24 hr 12/11/22 12/11/22 12/11/22 15:00 15:28 15:28 WBC 8.3 RBC 5.85 H Hgb 15.4 H Hct 47.5 H MCV 81.2 MCH 26.3 L MCHC 32.4 RDW Std Deviation 40.2 RDW Coeff of Chris 13.6 Plt Count 230 MPV 10.3 Immature Gran % (Auto) 0.500 Neut % (Auto) 73.0 H Lymph % (Auto) 19.3 [place] % (Auto) 6.4 Eos % (Auto) 0.4 Baso % (Auto) 0.4 Absolute Neuts (auto) 6.1 Absolute Lymphs (auto) 1.61 Nucleated RBC % 0 Sodium 134 L Potassium 4.0 Chloride 104 Carbon Dioxide 25.0 Anion Gap 5 BUN 27 H Creatinine 1.16 H Est GFR (MDRD) Af Amer 58 L Est GFR (MDRD) Non-Af 48 L BUN/Creatinine Ratio 23.3 H Glucose 149 H Calcium 11.6 H Urine Color Yellow Urine Clarity Clear Urine pH 5.0 Ur Specific [place] 1.020 Urine Protein 30 H Urine Glucose (UA) 1000 H Urine Ketones 5 H Urine Occult Blood 25 H Urine Nitrite Positive H Urine Bilirubin Negative Urine Urobilinogen Normal Ur Leukocyte Esterase 500 H Urine RBC 0-5 SEEN Urine WBC 5-10 SEEN Ur Squamous Epith Cells 0-5 SEEN Urine Bacteria RARE Urine Mucus 0 SEEN Radiography Diagnostic Testing: Clinical Impression(s) from Imaging Studies KUB X-Ray 12/11/22 16:05 IMPRESSION: No acute pathology of the abdomen and pelvis. Electronically Signed: Armando Ellison DO at 16:29 EDT Reading Location ID and State: [facility] / [place] Tel [phone], Service support , Abdomen/Pelvis CT 12/11/22 17:04 IMPRESSION: Small hiatal hernia. Colonic diverticulosis. Renal cysts. Small calcified splenic artery aneurysm. Electronically Signed: Armando Ellison DO at 17:39 EDT , KUB 2 views, interpreted myself and radiologist shows no acute abnormality other than increased stool burden consistent with constipation. No signs of obstruction. No dilated bowel. No air-fluid levels. Discharge Plan Triage Chief Complaint: Nausea/Vomiting Other Complaint: Constipation ED Provider: Luciano Almeida Dx/Rx/DC Orders Instructions: ED Constipation (Adult), ED Vomiting (Adult) Prescriptions: New ondansetron 4 mg tablet,disintegrating 4 mg PO Q6H PRN (Reason: nausea and vomiting) Qty: 7 0RF No Action metformin 1,000 MG tablet 1,000 mg PO BIDCM glimepiride 4 MG tablet 4 mg PO DAILY fluoxetine 20 MG capsule 80 mg PO DAILY Verapamil Hcl [Verapamil Er] 180 MG Cap24h.Pel 180 mg PO DAILY atorvastatin 40 MG tablet 40 mg PO QHS Ranitidine [Zantac] 150 MG tablet 150 mg PO BID Primary Care Provider: Corazon Sharp Referrals: Corazon Sharp [Primary Care Provider] - 3-5 Days if not improving Activity Restrictions/Additional Instructions: Plenty fluids and rest. MiraLAX for the constipation. 4 to 6 ounces every 2-4 hours as needed until you have a large bowel movement. Follow-up with your doctor if not improving. Return if feeling worse. Zofran as needed for nausea. Disposition Disposition: Home, Self Care
[2022-12-11] MEDS: 0.9% Normal Saline 1,000 ML 999 ML IV (15:24)
[2022-12-11] MEDS: Ondansetron 4 MG/2 ML Vial IV ×2 (15:30→16:50)
[2022-12-11 15:32] LABS: Mucous, Urine 0 SEEN /hpf (<or=2+)
[2022-12-11 15:49] LABS: Absolute Lymphocyte Count 1.61 X10^3/uL (0.83-4.51); Absolute Neutrophil Count 6.1 X10^3/uL (2.0-7.7); Basophil# 0.03 X10^3/uL; Basophil% 0.4 % (0-1); Eosinophil# 0.03 X10^3/uL; Eosinophils% 0.4 % (0-5); Hematocrit 47.5 % (37-47); Hemoglobin 15.4 g/dL (12.0-15.0); Lymphocyte # 1.61 X10^3/ul (0.83-4.51); Lymphocyte % 19.3 % (19-41); Mean Corp Hgb Conc 32.4 g/dL (32-36); Mean Corpuscular Hgb 26.3 pg (27.0-32.0); Mean Corpuscular Volume 81.2 fL (81-99); Mean Platelet Vol. 10.3 fl (6.2-12.0); Monocyte# 0.53 X10^3/uL; Monocyte% 6.4 % (0-10); NRBC Flagged by Analyzer 0 % (0-5); Platelet Count 230 K/mm3 (150-450); RBC Distribution Width CV 13.6 % (11.6-14.6); RBC Distribution Width SD 40.2 fl (35.1-43.9); Red Blood Count 5.85 M/mm3 (4.2-5.4); White Blood Count 8.3 K/mm3 (4.4-11.0)
[2022-12-11 15:58] VITALS: PULSE 84; RESP 16
[2022-12-11 15:59] VITALS: BMI 25.8
[2022-12-11 15:59] LABS: Anion Gap 5 (5-15); BUN 27 mg/dL (7-18); BUN/Creat Ratio 23.3 RATIO (10-20); Calcium,Total 11.6 mg/dL (8.5-10.1); Chloride 104 mmol/L (98-107); Creatinine, Serum 1.16 mg/dL (0.55-1.02); EST Glomerular Filtration Rate 48 mL/min (>60); Est Glom Filt Rate - Afr Amer 58 mL/min (>60); Glucose 149 mg/dL (74-106); Sodium Level 134 mmol/L (136-145)
[2022-12-11 16:00] LABS: Color, Urine Yellow (Yellow); Glucose, Dipstick 1000 mg/dl (Normal); Ketone-Dipstick 5 mg/dl (Negative); Leukocyte Esterase-Dipstick 500 /ul (Negative); Nitrite-Dipstick Positive (Negative); Occult Blood-Urine 25 /ul (Negative); Protein-Dipstick 30 mg/dl (Negative); Urine Bilirubin Dipstick Negative (Negative); Urine Clarity Clear (Clear); Urine Urobilinogen Normal (Normal)
--- NOTE | 2022-12-11 16:05 | RAD_ITS ---
STUDY: X-RAY - ABDOMEN/PELVIS REASON FOR EXAM: Female, 77 years old. Constipation TECHNIQUE: Frontal views COMPARISON: None. FINDINGS: Normal visualized lung bases. There is an unremarkable bowel gas pattern. No significant fecal retention in the colon. There is no demonstrated free abdominal air. The visualized liver, spleen and kidneys are grossly normal in size and morphology. Normal soft tissue structures. Degenerative vertebral changes. RAD/Abdomen Single View IMPRESSION: No acute pathology of the abdomen and pelvis. Electronically Signed: Armando Ellison DO at 16:29 EDT ,
[2022-12-11 16:18] LABS: Bacteria RARE /hpf (None Seen); Red Blood Cells-Urine 0-5 SEEN /hpf (0-5); Squamous Epithelial Cells - UA 0-5 SEEN /hpf (5-10); White Blood Cells 5-10 SEEN /hpf (0-5)
[2022-12-11 17:00] VITALS: BP 157/69; PULSE 63
--- NOTE | 2022-12-11 17:04 | CT_ITS ---
STUDY: CT ABDOMEN AND PELVIS WITH CONTRAST REASON FOR EXAM: Female, 77 years old. abd pain RADIATION DOSAGE (If Supplied By Facility): CTDIvol = ( 9.89 ) mGy, DLP = ( 524.51 ) mGycm TECHNIQUE: Transaxial images were obtained from the dome of the diaphragm to the symphysis pubis without oral contrast. IV 100mL Isovue-370 was administered. Sagittal and coronal images were reconstructed. Individualized dose optimization techniques were used for this CT. COMPARISON: None. FINDINGS: The visualized lung bases are unremarkable. The visualized portions of the heart are within normal limits. Normal liver. Status post cholecystectomy. No significant dilatation of the extrahepatic biliary system. Normal spleen. Normal pancreas. Normal bilateral adrenal glands. Bilateral renal cysts. Small hiatal hernia. Normal small intestine. Mild diverticulosis of the colon. The appendix is visualized and appears normal. Calcified abdominal aorta. 8mm calcified aneurysm of the splenic artery. Normal inferior vena cava. Normal retroperitoneum. Normal urinary bladder. Normal abdominal wall. Degenerative vertebral changes or mild scoliosis. CT/Abdomen/Pelvis W IV Cont ONLY IMPRESSION: Small hiatal hernia. Colonic diverticulosis. Renal cysts. Small calcified splenic artery aneurysm. Electronically Signed: Armando Ellison DO at 17:39 EDT Reading Location ID and State: [facility] / [place] Tel [phone], Service support ,
== END 2022-12-11 19:37 | disposition home or self-care (01) ==
PROVIDERS: Emergency Provider Emergency Medicine; PCP Family Medicine; Visit Provider Emergency Medicine
DX: K59.00 Constipation, unspecified (principal); F03.90 Unspecified dementia, unspecified severity, without behavioral disturbance, psychotic disturbance, mood disturbance, and anxiety; E11.9 Type 2 diabetes mellitus without complications; R11.2 Nausea with vomiting, unspecified; R10.9 Unspecified abdominal pain; I10 Essential (primary) hypertension; Z90.49 Acquired absence of other specified parts of digestive tract; Z90.710 Acquired absence of both cervix and uterus
CPT/HCPCS: 74018; 74177; 80048; 81001; 85025; 87086; 87088; 87186; 99283; J7030; Q9967; A4216; J2405

== ENCOUNTER → 2023-04-12 | Outpatient (CLI) | payer MEDICARE, SELFPAY ==
[2023-04-12 12:09] LABS: Absolute Lymphocyte Count 1.57 X10^3/uL (0.83-4.51); Basophil# 0.04 X10^3/uL; Eosinophil# 0.03 X10^3/uL; Eosinophils% 0.8 % (0-5); Hematocrit 46.4 % (37-47); Hemoglobin 14.7 g/dL (12.0-15.0); Lymphocyte # 1.57 X10^3/ul (0.83-4.51); Lymphocyte % 39.6 % (19-41); Mean Corp Hgb Conc 31.7 g/dL (32-36); Mean Corpuscular Hgb 25.3 pg (27.0-32.0); Mean Platelet Vol. 11.4 fl (6.2-12.0); Monocyte# 0.31 X10^3/uL; Monocyte% 7.8 % (0-10); NRBC Flagged by Analyzer 0 % (0-5); Neutrophil # 1.98 X10^3/uL (2.7-7.7); POSITIVE MORPHOLOGY YES; Platelet Count 109 K/mm3 (150-450); RBC Distribution Width CV 14.3 % (11.6-14.6); RBC Distribution Width SD 41.1 fl (35.1-43.9)
[2023-04-12 12:11] LABS: Differential Indicated SCAN CRITERIA MET
[2023-04-12 12:35] LABS: Reactive Lymphocyte 1+
[2023-04-12 12:50] LABS: ALB/GLOB Ratio 0.8 RATIO (0.9-2.4); AST(SGOT) 160 U/L (15-37); Alanine Aminotransfer ALT/SGPT 105 U/L (13-56); Albumin, Serum 2.7 g/dL (3.2-5.0); Alkaline Phosphatase 272 U/L (45-117); Anion Gap 7 (5-15); BUN 24 mg/dL (7-18); BUN/Creat Ratio 24.6 RATIO (10-20); Calcium,Total 11.1 mg/dL (8.5-10.1); Chloride 100 mmol/L (98-107); Creatinine, Serum 0.98 mg/dL (0.55-1.02); EST Glomerular Filtration Rate 59 mL/min (>60); Est Glom Filt Rate - Afr Amer 71 mL/min (>60); Globulin 3.5 g/dL (2.2-4.2); Glucose 105 mg/dL (74-106); Protein, Total 6.2 g/dL (6.4-8.2); Sodium Level 134 mmol/L (136-145); Thyroid Stim Hormone (TSH) 1.82 uIU/mL (0.358-3.74)
== END | disposition home or self-care (01) ==
PROVIDERS: PCP Family Medicine; Referring Provider Family Medicine; Visit Provider Family Medicine
DX: E11.9 Type 2 diabetes mellitus without complications (principal); Z51.81 Encounter for therapeutic drug level monitoring
CPT/HCPCS: 36415; 80053; 84443; 85025

== ENCOUNTER → 2023-05-02 | Outpatient (CLI) | payer MEDICARE, SELFPAY ==
[2023-05-02 15:45] LABS: ALB/GLOB Ratio 0.8 RATIO (0.9-2.4); AST(SGOT) 224 U/L (15-37); Alanine Aminotransfer ALT/SGPT 158 U/L (13-56); Albumin, Serum 2.3 g/dL (3.2-5.0); Alkaline Phosphatase 387 U/L (45-117); Anion Gap 5 (5-15); BUN 32 mg/dL (7-18); BUN/Creat Ratio 42.2 RATIO (10-20); Calcium,Total 10.8 mg/dL (8.5-10.1); Chloride 104 mmol/L (98-107); Creatinine, Serum 0.76 mg/dL (0.55-1.02); EST Glomerular Filtration Rate 79 mL/min (>60); Est Glom Filt Rate - Afr Amer 95 mL/min (>60); Ferritin 292 ng/mL (8-252); Globulin 2.9 g/dL (2.2-4.2); Glucose 133 mg/dL (74-106); Potassium 4.2 mmol/L (3.5-5.1); Protein, Total 5.2 g/dL (6.4-8.2); Sodium Level 137 mmol/L (136-145)
[2023-05-02 15:45] LABS: Ionized Calcium 6.22 mg/dL (4.36-5.20)
[2023-05-02 16:45] LABS: Vitamin D,25 Hydroxy 55.5 ng/mL
[2023-05-02 19:54] LABS: Ionized Calcium Order ORDER TUBE
[2023-05-04 08:03] LABS: PTHIN 66.2 pg/mL (18.4-80.1)
[2023-05-05 17:06] LABS: ANTINUCLEAR ANTIBODIES DIRECT Negative (Negative); Vitamin D 1,25-Dihydroxy 99.4 pg/mL (24.8-81.5)
[2023-05-07 16:09] LABS: Alkaline Phosphatase, Serum 408 IU/L (44-121); Bone Fraction 43 % (14-68); Intestinal Fraction 2 % (0-18); Liver Fraction 55 % (18-85)
== END | disposition home or self-care (01) ==
PROVIDERS: PCP Family Medicine; Referring Provider Family Medicine; Visit Provider Family Medicine
DX: E83.52 Hypercalcemia (principal); R79.89 Other specified abnormal findings of blood chemistry; R74.8 Abnormal levels of other serum enzymes
CPT/HCPCS: 36415; 80053; 82306; 82330; 82652; 82728; 83970; 84075; 84080; 86038; 86225; 86235

== ENCOUNTER 2023-05-20 19:44 | Emergency (ER) | payer MEDICARE, SELFPAY ==
[2023-05-20 19:48] VITALS: BP 129/74; PULSE 90; RESP 16; TEMP 37; O2SAT 96; BMI 31.1
[2023-05-20 19:51] VITALS: BP 129/74; PULSE 89; RESP 16; TEMP 37; O2SAT 91; O2SAT 92
--- NOTE | 2023-05-20 20:00 | EKG12_ITS ---
Test Reason : Blood Pressure : / mmHG Vent. Rate : 089 BPM Atrial Rate : 089 BPM P-R Int : 136 ms QRS Dur : 086 ms QT Int : 342 ms P-R-T Axes : -76 024 025 degrees QTc Int : 416 ms Unusual P axis and short GA, probable junctional tachycardia Cannot rule out Inferior infarct , age undetermined Abnormal ECG Confirmed by NATALIE DICKENS, DYLAN ([id number]), editor at large FARZAD JOHNSON ([id number]) on 05/23/2023 10:49:34 AM Referred By: Confirmed By:DYLAN ESTRADA MD
--- NOTE | 2023-05-20 20:01 | EX.ED.DYSGE1 ---
HPI History of Present Illness Chief Complaint: Cough Informant: patient, EMS and SNF Limited: dementia Narrative Narrative: 77-year-old female presenting to the emergency room from SNF. The patient reportedly started Levaquin for urinary tract infection in the past 2 days. She has been having vomiting and nausea not controlled through Zofran. IV fluids were started yesterday and into today. Patient notes a cough and there is a history of CHF per reports. The patient states she is not experiencing any pain. She does not feel short of breath when I asked her. When I ask if she is coughing she says no and then she coughs. There is been no reported fevers. She does have a sacral coccygeal decubitus wound. Reports her that she has been incontinent of stool on the way to the emergency department. No reports of hypoxia. [facility] Medical History (Updated 05/20/23 @ 22:43 by Fatoumata Elias) Anxiety Dementia Depression Diabetic acidosis, type II Hyperlipidemia Urinary and bowel incontinence UTI (urinary tract infection) Home Medications Verapamil Hcl [Verapamil Er] 180 mg PO DAILY 07/17/16 [History Last Taken Unknown] fluoxetine 20 mg capsule 40 mg PO DAILY 07/17/16 [History Last Taken Unknown] metformin 1,000 mg tablet 1,000 mg PO BIDCM 07/17/16 [History Last Taken Unknown] atorvastatin 40 mg tablet 40 mg PO QHS 11/13/17 [History Last Taken Unknown] Ranitidine [Zantac] 150 mg PO BID 06/09/18 [History Last Taken Unknown] ondansetron 4 mg disintegrating tablet 4 mg PO Q6H PRN nausea and vomiting #7 tabs 12/11/22 [Rx Last Taken Unknown] carvedilol 6.25 mg tablet 6.25 mg PO Q12H 05/20/23 [History Last Taken Unknown] donepezil 10 mg tablet 10 mg PO QHS 05/20/23 [History Last Taken Unknown] levofloxacin 500 mg tablet 500 mg PO Q24H 05/20/23 [History Last Taken Unknown] oxybutynin chloride 10 mg tablet,extended release 24 hr 10 mg PO DAILY 05/20/23 [History Last Taken Unknown] Allergy/AdvReac Type Severity Reaction Status Date / Time No Known Allergies Allergy Verified 05/20/23 21:05 Social History Smoking Status: Never smoker ROS ROS ED Review of Systems ROS Unobtainable: due to mental status Constitutional Constitutional ED: Denies chills, fever(s) or weight loss Eyes Eyes: Denies change in vision or diplopia ENT ENT ED: Denies ear pain, rhinorrhea or sore throat Cardiovascular Cardiovascular: Denies chest pain, orthopnea, palpitations or racing heartbeat Respiratory/Chest Respiratory/Chest: Reports cough; Denies dyspnea, dyspnea on exertion or orthopnea Gastrointestinal Gastrointestinal: Reports diarrhea, nausea and vomiting; Denies abdominal pain Genitourinary Genitourinary ED: Denies dysuria, hematuria or urinary frequency Musculoskeletal Musculoskeletal: Denies arthralgias or myalgias Integumentary Denies abscess or rash Neurologic Neurologic: Denies headache(s) or weakness Psychiatric Psychiatric: Denies anxiety, depression, suicidal ideation or suicidal thoughts Endocrine Endocrinology: Denies polydipsia, polyphagia or polyuria Allergic/Immunologic Allergic/Immunologic ED: Denies mouth swelling, tongue swelling or urticaria EXAM Physical Exam Const Vital Signs: 05/20/23 19:48 05/20/23 19:51 05/20/23 19:51 Temperature 98.6 F 98.6 F Temperature Source Oral Oral Pulse Rate 90 89 Respiratory Rate 16 16 Respiratory Effort Normal Respiratory Depth Normal Respiratory Pattern Normal Blood Pressure 129/74 H 129/74 H Blood Pressure Mean 92 92 Pulse Ox 96 91 Oxygen Delivery Method Room Air Room Air Room Air 05/20/23 22:48 05/20/23 22:48 Temperature Temperature Source Pulse Rate 86 86 Respiratory Rate 16 16 Respiratory Effort Respiratory Depth Respiratory Pattern Blood Pressure 117/84 H 117/84 H Blood Pressure Mean 95 Pulse Ox 96 96 Oxygen Delivery Method Room Air Positive well nourished and well developed General Appearance ED: well developed HEENT Reports normocephalic, head/scalp atraumatic and moist mucous membranes Eyes PERRL and EOMs intact bilaterally Neck no lymphadenopathy, supple and no JVD Resp normal respiratory effort and clear to auscultation bilaterally Cardio regular rate, regular rhythm and no murmurs GI normal to inspection, nondistended, normoactive bowel sounds and non-tender Palpation: soft Back/Spine no CVA tenderness and normal ROM Extremity normal to inspection General Extremety ED: Negative for edema General Extremity: Negative for edema Neuro CN's II-XII intact bilaterally Sensorium / Orientation: alert and orientation impaired; Negative for lethargic or stuporous Motor Exam: strength 5/5 throughout; Negative for general weakness Psych mental status grossly normal Mood & Affect: Negative for depressed or tearful Skin no rashes or lesions noted and no wounds MDM MDM MDM Narrative Medical decision making narrative: Interpretation of the chest x-ray is left lower lobe changes. Radiology reads this is possible pneumonia. Her white count is low at 4.2. She had does not have a fever. She is not hypoxic. Her cough is dry and her lung sounds are clear. This could be scarring she has not had imaging of her chest for several years at least that I have access to here. Patient does [place] of her to examine ACEs and her alk phos. This is not new has been there earlier this year. Her abdomen is benign. She has no right upper quadrant or epigastric tenderness. Patient is tolerating fluids by mouth. She is already on Levaquin so if that was pneumonia that should help cover it I did not check the urine because again she is already being treated. I do not see evidence of dehydration and she has been getting IV fluids at the skilled nursing. At this point I do not see an obvious reason to hospitalize the patient. She is comfortable going back we will continue to monitor Lab Data Attestation: I reviewed the patient's lab results. Labs: Laboratory Results - last 24 hr 05/20/23 20:16 WBC 4.2 L RBC 5.03 Hgb 12.2 Hct 38.2 MCV 75.9 L MCH 24.3 L MCHC 31.9 L RDW Std Deviation 52.4 H RDW Coeff of Chris 19.6 H Plt Count 87 L MPV 10.0 Immature Gran % (Auto) 1.000 H Neut % (Auto) 75.4 H Lymph % (Auto) 13.4 L [place] % (Auto) 10.0 Eos % (Auto) 0.0 Baso % (Auto) 0.2 Absolute Neuts (auto) 3.2 Absolute Lymphs (auto) 0.56 L Nucleated RBC % 0 Differential Comment SEE COMMENT Diff Path Review May foll Platelet Estimate MOD DEC RBC Morphology N CHROM Anisocytosis RARE Microcytosis RARE Sodium 130 L Potassium 4.0 Chloride 101 Carbon Dioxide 22.0 Anion Gap 7 BUN 18 Creatinine 0.57 Estim Creat Clear Calc 34.38 Est GFR (MDRD) Af Amer 132 Est GFR (MDRD) Non-Af 109 BUN/Creatinine Ratio 31.6 H Glucose 131 H Calcium 9.3 Total Bilirubin 1.90 H AST 120 H ALT 91 H Alkaline Phosphatase 363 H Total Protein 4.2 L Albumin 1.8 L Globulin 2.4 Albumin/Globulin Ratio 0.8 L Radiography Diagnostic Testing: Clinical Impression(s) from Imaging Studies Chest X-Ray 05/20/23 20:20 IMPRESSION: Left lower lobe pneumonia. Electronically Signed: Taye Tubbs MD at 20:41 EDT , EKG Initial EKG: Attestation: I personally reviewed and interpreted this EKG as follows: Comments: Sinus rhythm with a ventricular rate of 89 bpm. No concerning features of ACS Discharge Plan Triage Chief Complaint: Cough ED Provider: Cristopher Hester Dx/Rx/DC Orders Clinical Impression: Cough, Nausea & vomiting Prescriptions: No Action metformin 1,000 MG tablet 1,000 mg PO BIDCM fluoxetine 20 MG capsule 40 mg PO DAILY Verapamil Hcl [Verapamil Er] 180 MG Cap24h.Pel 180 mg PO DAILY atorvastatin 40 MG tablet 40 mg PO QHS Ranitidine [Zantac] 150 MG tablet 150 mg PO BID ondansetron 4 mg tablet,disintegrating 4 mg PO Q6H PRN (Reason: nausea and vomiting) Qty: 7 0RF donepezil 10 mg tablet 10 mg PO QHS Patient Comments: TAKE 1 TABLET BY MOUTH ONCE DAILY AT 9 PM BEDTIME carvedilol 6.25 mg tablet 6.25 mg PO Q12H Patient Comments: TAKE 1 TABLET BY MOUTH TWICE DAILY levofloxacin 500 mg tablet 500 mg PO Q24H oxybutynin chloride 10 mg tablet extended release 24hr 10 mg PO DAILY Primary Care Provider: Kate An Referrals: Corazon Sharp DO [Med Staff - Active Staff] - Activity Restrictions/Additional Instructions: Continued hydration per your doctor. Zofran as needed. Progress diet as needed. You are on Levaquin which is being used to treat a urinary tract infection. Today's chest x-ray is questionable for a left lower lobe infiltrate/pneumonia. However your white count is normal you do not have a fever and your oxygenation is normal. We will have you continue this antibiotic. Disposition Disposition: Home, Self Care
--- NOTE | 2023-05-20 20:20 | RAD_ITS ---
STUDY: X-RAY CHEST REASON FOR EXAM: Female, 77 years old. chf TECHNIQUE: Single AP portable view of the chest. COMPARISON: None. FINDINGS: Alveolar opacity in the lower left lung consistent with left lower lobe pneumonia. There is no demonstrated pleural abnormality. Normal size heart. Normal mediastinum and javy. Normal visualized pulmonary arteries. Normal visualized aortic arch and descending thoracic aorta. Normal visualized thoracic spine. Normal visualized ribs, clavicles, and shoulders. There is no demonstrated abnormality of the visualized soft tissue structures of the upper abdomen. RAD/Chest 1 View (Portable) IMPRESSION: Left lower lobe pneumonia. Electronically Signed: Taye Tubbs MD at 20:41 EDT ,
[2023-05-20 20:23] LABS: Absolute Lymphocyte Count 0.56 X10^3/uL (0.83-4.51); Absolute Neutrophil Count 3.2 X10^3/uL (2.0-7.7); Basophil# 0.01 X10^3/uL; Basophil% 0.2 % (0-1); Hematocrit 38.2 % (37-47); Hemoglobin 12.2 g/dL (12.0-15.0); Lymphocyte # 0.56 X10^3/ul (0.83-4.51); Lymphocyte % 13.4 % (19-41); Mean Corp Hgb Conc 31.9 g/dL (32-36); Mean Corpuscular Hgb 24.3 pg (27.0-32.0); Mean Corpuscular Volume 75.9 fL (81-99); Monocyte# 0.42 X10^3/uL; NRBC Flagged by Analyzer 0 % (0-5); Neutrophil # 3.15 X10^3/uL (2.7-7.7); Neutrophil % 75.4 % (47-70); POSITIVE COUNT YES; POSITIVE DIFFERENTIAL YES; Platelet Count 87 K/mm3 (150-450); RBC Distribution Width CV 19.6 % (11.6-14.6); RBC Distribution Width SD 52.4 fl (35.1-43.9); Red Blood Count 5.03 M/mm3 (4.2-5.4); White Blood Count 4.2 K/mm3 (4.4-11.0)
[2023-05-20 20:24] LABS: Differential Indicated SCAN CRITERIA MET
[2023-05-20 20:38] LABS: ALB/GLOB Ratio 0.8 RATIO (0.9-2.4); AST(SGOT) 120 U/L (15-37); Alanine Aminotransfer ALT/SGPT 91 U/L (13-56); Albumin, Serum 1.8 g/dL (3.2-5.0); Alkaline Phosphatase 363 U/L (45-117); Anion Gap 7 (5-15); BUN 18 mg/dL (7-18); BUN/Creat Ratio 31.6 RATIO (10-20); Calcium,Total 9.3 mg/dL (8.5-10.1); Chloride 101 mmol/L (98-107); Creatinine, Serum 0.57 mg/dL (0.55-1.02); EST Glomerular Filtration Rate 109 mL/min (>60); Est Glom Filt Rate - Afr Amer 132 mL/min (>60); Estimated Creatinine Clearance 34.38 ml/min; Globulin 2.4 g/dL (2.2-4.2); Glucose 131 mg/dL (74-106); Protein, Total 4.2 g/dL (6.4-8.2); Sodium Level 130 mmol/L (136-145)
[2023-05-20 20:51] LABS: Platelet Estimate MOD DEC (ADEQ)
[2023-05-20 20:52] LABS: Anisocytosis RARE; Microcytosis RARE; Red Cell Morphology N CHROM NORMAL (NORM C&C)
--- NOTE | 2023-05-20 21:13 | ED.RN ---
PT DOES HAVE MULTIPLE OPEN CIRCULAR WOUNDS TO COCCYX.
[2023-05-20 22:48] VITALS: BP 117/84; PULSE 86; RESP 16; O2SAT 96
[2023-05-22 16:32] LABS: BNP,B-Type NATRIURETIC PEPTIDE 64.8 pg/mL (0-100)
[2023-05-23 12:59] LABS: Pathologist Review Reviewed
== END 2023-05-21 03:38 | disposition home or self-care (01) ==
PROVIDERS: Emergency Provider Emergency Medicine; PCP Internal Medicine; Visit Provider Emergency Medicine
DX: R05.9 Cough, unspecified (principal); F03.90 Unspecified dementia, unspecified severity, without behavioral disturbance, psychotic disturbance, mood disturbance, and anxiety; I50.9 Heart failure, unspecified; E11.9 Type 2 diabetes mellitus without complications; R11.2 Nausea with vomiting, unspecified; L89.159 Pressure ulcer of sacral region, unspecified stage; R94.31 Abnormal electrocardiogram [ECG] [EKG]
CPT/HCPCS: 71045; 80053; 83880; 85025; 93005; 99285; A4216

== ENCOUNTER 2023-05-29 11:49 | Inpatient (IN) | payer MEDICARE, SELFPAY ==
[2023-05-29] VITALS (14 sets, daily range): BP systolic 102–137; BP diastolic 55–75; PULSE 77–110; RESP 16–25; TEMP 36.5–37.3; O2SAT 92–100; BMI 30.5; BMI 24.3
--- NOTE | 2023-05-29 12:06 | CT_ITS ---
STUDY: CT BRAIN WITHOUT CONTRAST REASON FOR EXAM: Female, 77 years old. Mental status change RADIATION DOSAGE (If Supplied By Facility): CTDIvol = ( 44.99 ) mGy, DLP = ( 779.24 ) mGycm TECHNIQUE: Transaxial CT imaging of the brain was performed without administration of intravenous contrast material. Individualized dose optimization techniques were used for this CT. COMPARISON: Comparison is made with prior study dated December 25, 2018. FINDINGS: Normal soft tissue structures. Normal calvarium. There is mild cerebral atrophy with widening of the extra-axial spaces and ventricular dilatation. There are areas of decreased attenuation within the white matter tracts of the supratentorial brain, consistent with microvascular disease changes. Normal basal ganglia and thalami. Normal brainstem. There is mild cerebellar atrophy. There is no intracranial hemorrhage. There are no findings of an acute ischemic infarction. Atherosclerotic plaque formation of the vertebral arteries and cavernous portions of the internal carotid arteries bilaterally. Normal visualized paranasal sinuses. CT/Brain/Head without Contrast IMPRESSION: Normal unenhanced CT scan of the brain. Electronically Signed: Jesse Grider MD at 13:30 EDT ,
--- NOTE | 2023-05-29 12:06 | EKG12_ITS ---
Test Reason : ALT LOC Blood Pressure : / mmHG Vent. Rate : 104 BPM Atrial Rate : 104 BPM P-R Int : 170 ms QRS Dur : 080 ms QT Int : 330 ms P-R-T Axes : 038 020 050 degrees QTc Int : 433 ms Sinus tachycardia Nonspecific T wave abnormality Abnormal ECG Confirmed by NATALIE DICKENS, DYLAN ([id number]), writer editor FARZAD JOHNSON ([id number]) on 05/31/2023 1:40:29 PM Referred By: Confirmed By:DYLAN ESTRADA MD
--- NOTE | 2023-05-29 12:07 | CT_ITS ---
STUDY: CT ABDOMEN AND PELVIS WITHOUT CONTRAST REASON FOR EXAM: Female, 77 years old. Abdominal pain RADIATION DOSAGE (If Supplied By Facility): CTDIvol = ( 12.46 ) mGy, DLP = ( 736.86 ) mGycm TECHNIQUE: Transaxial images were obtained from the dome of the diaphragm to the symphysis pubis without oral contrast, and without intravenous contrast. Sagittal and coronal images were reconstructed. Individualized dose optimization techniques were used for this CT. COMPARISON: Comparison is made with prior study dated December 11, 2022. FINDINGS: Bibasilar pulmonary infiltrates slightly worse on the left lung base. Minimal bilateral pleural effusions. Coronary artery calcification. Small amount of the perihepatic fluid most likely subcapsular in nature. Minimal increased markings are seen in the peritoneal fat on the right side just distal to the right lobe of the liver. Is there history of trauma. There are surgical clips in the gallbladder fossa consistent with a prior cholecystectomy. There is mild splenomegaly. Normal pancreas. Normal bilateral adrenal glands. Normal right kidney. Normal left kidney. Normal visualized stomach. Normal small intestine. There are scattered colonic diverticula consistent with diverticulosis. The appendix is visualized and appears normal. There is diffuse atherosclerotic calcification of the abdominal aorta and its major visceral branches, without a demonstrated aneurysm. Normal inferior vena cava. Normal retroperitoneum. Normal urinary bladder. There is absence of the uterus consistent with a prior hysterectomy. Normal abdominal wall. There are mild degenerative changes of the visualized lumbar spine. CT/Abdomen/Pelvis without Cont IMPRESSION: Bibasilar pulmonary infiltrates and minimal bilateral pleural effusions. Findings suggestive of a small amount of subcapsular hepatic fluid. Is there a history of trauma. Mild splenomegaly. Electronically Signed: Jesse Grider MD at 13:36 EDT ,
--- NOTE | 2023-05-29 12:08 | EX.ED.DYSGE1 ---
HPI <Dr. Blayne Agrawal DO - Last Filed: 06/17/23 08:17> History of Present Illness Chief Complaint: Shortness of Breath Detail of Chief Complaint: Mental status change and shortness of breath Informant: EMS and SNF Narrative Narrative: Patient presents to the emergency department via EMS from jail facility at [facility]. Patient apparently noted today to be short of breath and with mental status change and increased confusion. She does have history of UTIs. Patient has history of dementia and is a very poor historian and really cannot give much history. She answers in the affirmative for everything when asked if she has chest pain and abdominal pain. She says she does feel short of breath. FOR[facility]LY [facility], [facility] <Dr. Blayne Agrawal DO - Last Filed: 06/17/23 08:17> [facility] Medical History (Updated 06/08/23 @ 00:35 by Vanessa Garduno) Anxiety CPAP (continuous positive airway pressure) dependence Dementia Depression Diabetes Diabetic acidosis, type II Hyperlipidemia Kidney disease Non-smoker Pulmonary embolism Urinary and bowel incontinence UTI (urinary tract infection) Home Medications enoxaparin 60 mg/0.6 mL subcutaneous syringe (Lovenox) 70 mg (0.7 mL) subcut Q12H #6 mL 05/31/23 [Rx Last Taken Unknown] Allergy/AdvReac Type Severity Reaction Status Date / Time No Known Allergies Allergy Verified 05/29/23 16:23 Social History Smoking Status: Never smoker ROS <Dr. Blayne Agrawal DO - Last Filed: 06/17/23 08:17> ROS ED ROS Narrative Patient very poor historian and really cannot give much history Review of Systems ROS Unobtainable: due to mental status EXAM <Dr. Blayne Agrawal DO - Last Filed: 06/17/23 08:17> Physical Exam Const Vital Signs: 05/29/23 11:50 05/29/23 12:27 05/29/23 12:55 Temperature 98.2 F 98.6 F Temperature Source Temporal Oral Pulse Rate 110 H 93 Respiratory Rate 18 22 H Respiratory Effort Short of Breath Respiratory Depth Normal Respiratory Pattern Normal Blood Pressure 132/72 H 119/75 Blood Pressure Mean 92 89 Pulse Ox 96 97 Oxygen Delivery Method Nasal Cannula Nasal Cannula Nasal Cannula Oxygen Flow Rate (L/min) 2 2 3 05/29/23 14:00 05/29/23 14:49 05/29/23 15:00 Temperature 99.0 F 99.1 F Temperature Source Oral Oral Pulse Rate 99 96 99 Respiratory Rate 25 H 24 H 24 H Respiratory Effort Respiratory Depth Respiratory Pattern Blood Pressure 112/62 120/65 119/62 Blood Pressure Mean 78 83 81 Pulse Ox 100 97 93 Oxygen Delivery Method Nasal Cannula Nasal Cannula Nasal Cannula Oxygen Flow Rate (L/min) 3 3 3 Positive well nourished and well developed General Appearance ED: well developed and NAD HEENT Reports TM's clear and moist mucous membranes normocephalic and atraumatic; Negative for trauma or tenderness Tympanic Membrane ED: Yes TM's clear Eyes PERRL and EOMs intact bilaterally General Eye ED: Negative for pale conjunctiva or scleral icterus Neck no lymphadenopathy, supple and no JVD General: Negative for tenderness Chest Wall inspection of chest normal and palpation of chest normal Chest: Negative for tenderness Resp normal respiratory effort and clear to auscultation bilaterally Effort and Inspection: Negative for respiratory distress or pain with movement Auscultation: Negative for rhonchi, wheezes or diminished lung sounds Cardio regular rhythm, S1 normal heart sound, S2 normal heart sound and no murmurs Rate: tachycardic Peripheral Pulses: pulses 2+ throughout GI normal to inspection, nondistended, normoactive bowel sounds, soft to palpation, non-distended and no masses GI Narrative: Diffuse tenderness palpation with guarding. There is no rebound or rigidity. No mass palpated. Back/Spine no CVA tenderness and no thoracic nor lumbar tenderness Extremity normal to inspection General Extremety ED: Negative for edema General Extremity: Negative for edema Neuro oriented x3, CN's II-XII intact bilaterally, no sensory deficits noted and gait normal Sensorium / Orientation: awake, alert, oriented to person, oriented to place and oriented to time Motor Exam: strength 5/5 throughout and strength abnormal Psych mental status grossly normal Skin no rashes or lesions noted and no wounds <Dr. Cristopher Hester, DO - Last Filed: 05/29/23 17:25> Physical Exam Const Vital Signs: 05/29/23 11:50 05/29/23 12:27 05/29/23 12:55 Temperature 98.2 F 98.6 F Temperature Source Temporal Oral Pulse Rate 110 H 93 Respiratory Rate 18 22 H Respiratory Effort Short of Breath Respiratory Depth Normal Respiratory Pattern Normal Blood Pressure 132/72 H 119/75 Blood Pressure Mean 92 89 Pulse Ox 96 97 Oxygen Delivery Method Nasal Cannula Nasal Cannula Nasal Cannula Oxygen Flow Rate (L/min) 2 2 3 05/29/23 14:00 05/29/23 14:49 05/29/23 15:00 Temperature 99.0 F 99.1 F Temperature Source Oral Oral Pulse Rate 99 96 99 Respiratory Rate 25 H 24 H 24 H Respiratory Effort Respiratory Depth Respiratory Pattern Blood Pressure 112/62 120/65 119/62 Blood Pressure Mean 78 83 81 Pulse Ox 100 97 93 Oxygen Delivery Method Nasal Cannula Nasal Cannula Nasal Cannula Oxygen Flow Rate (L/min) 3 3 3 [facility] <Dr. Blayne Agrawal, DO - Last Filed: 06/17/23 08:17> [facility] Narrative Medical decision making narrative: Presents with progressive decline over the last week. Per family member she is now requiring oxygen for the last week. She has had a cough. Patient herself is a poor historian some of the history comes from family members who were not initially present during my initial evaluation of the patient. This morning apparently nobody could arouse the patient. IV line established on arrival. CT scan of the brain without contrast obtained was essentially unremarkable. CBC with differential was unremarkable. Chemistries unremarkable other than potassium of 5.7 however there was hemolysis. BUN was 37 and creatinine 0.84. Lactate was normal 1.5. Total bilirubin 2.2 and AST 122, ALT 124, and alk phos 514. Lipase normal at 35. Urinalysis unremarkable. I did obtain CT scan of the abdomen pelvis given tenderness on exam and she was noted to have small amount of fluid around the liver uncertainty as to the cause radiologist question trauma however per family there is no history of trauma. I did start patient empirically on Rocephin and Zithromax. Case discussed with hospitalist to evaluate patient for admission. Hospitalist was able to obtain more information from family and apparently patient has had history of elevated ammonia levels and I will order an ammonia level which may explain some of her mental status change. Patient blood pressure somewhat soft in the department with last systolic in the 90s. Patient does have a low-grade temp. I did order blood cultures. Patient will be admitted for IV hydration and antibiotics. I also did order a BNP. Also ordered a D-dimer which is pending at the request of hospitalist. Lab Data Attestation: I reviewed the patient's lab results. Labs: Laboratory Results - last 24 hr 05/29/23 05/29/23 05/29/23 11:35 11:55 12:00 WBC 8.4 RBC 5.49 H Hgb 13.3 Hct 41.9 MCV 76.3 L MCH 24.2 L MCHC 31.7 L RDW Std Deviation 60.6 H RDW Coeff of Chris 23.3 H Plt Count 105 L MPV 10.2 Immature Gran % (Auto) 0.800 Neut % (Auto) 78.4 H Lymph % (Auto) 14.4 L [place] % (Auto) 5.9 Eos % (Auto) 0.1 Baso % (Auto) 0.4 Absolute Neuts (auto) 6.6 Absolute Lymphs (auto) 1.20 Nucleated RBC % 0 Differential Comment SCANNED Anisocytosis 1+ D-Dimer Quant (PE/DVT) 0.85 H* Sodium 137 Potassium 5.7 H Chloride 108 H Carbon Dioxide 26.0 Anion Gap 3 L BUN 37 H Creatinine 0.84 Estim Creat Clear Calc 40.93 Est GFR (MDRD) Af Amer 84 Est GFR (MDRD) Non-Af 70 BUN/Creatinine Ratio 43.8 H Glucose 200 H Lactic Acid Calcium 10.0 Total Bilirubin 2.20 H AST 122 H ALT 124 H Alkaline Phosphatase 514 H Troponin I High Sens 15 B-Natriuretic Peptide 63.0 Total Protein 4.4 L Albumin 1.7 L Globulin 2.7 Albumin/Globulin Ratio 0.6 L Lipase 35 Urine Color Ivy Urine Clarity Sl. Cloudy Urine pH 5.0 Ur Specific [place] 1.020 Urine Protein 30 H Urine Glucose (UA) 50 H Urine Ketones 5 H Urine Occult Blood Negative Urine Nitrite Negative Urine Bilirubin 1 H Urine Urobilinogen 1 H Ur Leukocyte Esterase 100 H Urine RBC 0 SEEN Urine WBC 0-5 SEEN Ur Squamous Epith Cells 0-5 SEEN Calcium Oxalate Crystal 1+ Urine Bacteria 1+ Urine Mucus 1+ 05/29/23 12:20 WBC RBC Hgb Hct MCV MCH MCHC RDW Std Deviation RDW Coeff of Chris Plt Count MPV Immature Gran % (Auto) Neut % (Auto) Lymph % (Auto) [place] % (Auto) Eos % (Auto) Baso % (Auto) Absolute Neuts (auto) Absolute Lymphs (auto) Nucleated RBC % Differential Comment Anisocytosis D-Dimer Quant (PE/DVT) Sodium Potassium Chloride Carbon Dioxide Anion Gap BUN Creatinine Estim Creat Clear Calc Est GFR (MDRD) Af Amer Est GFR (MDRD) Non-Af BUN/Creatinine Ratio Glucose Lactic Acid 1.5 Calcium Total Bilirubin AST ALT Alkaline Phosphatase Troponin I High Sens B-Natriuretic Peptide Total Protein Albumin Globulin Albumin/Globulin Ratio Lipase Urine Color Urine Clarity Urine pH Ur Specific [place] Urine Protein Urine Glucose (UA) Urine Ketones Urine Occult Blood Urine Nitrite Urine Bilirubin Urine Urobilinogen Ur Leukocyte Esterase Urine RBC Urine WBC Ur Squamous Epith Cells Calcium Oxalate Crystal Urine Bacteria Urine Mucus Radiography Diagnostic Testing: Clinical Impression(s) from Imaging Studies Brain CT 05/29/23 12:06 IMPRESSION: Normal unenhanced CT scan of the brain. Electronically Signed: Jesse Grider MD at 13:30 EDT , Abdomen/Pelvis CT 05/29/23 12:07 IMPRESSION: Bibasilar pulmonary infiltrates and minimal bilateral pleural effusions. Findings suggestive of a small amount of subcapsular hepatic fluid. Is there a history of trauma. Mild splenomegaly. Electronically Signed: Jesse Grider MD at 13:36 EDT , Chest X-Ray 05/29/23 13:12 IMPRESSION: Mild degree of CHF with small bilateral effusions and bibasilar atelectasis and/or infiltrates. Cardiomegaly. Electronically Signed: Jesse Grider MD at 13:39 EDT , Chest CTA 05/29/23 16:14 IMPRESSION: undefined ADDENDUM: 05/29/23 [id number] IMPRESSION: undefined Chest x-ray obtained interpreted by myself as cardiomegaly with increased lung markings bilaterally without evidence of pneumothorax. Radiology felt there was mild degree of CHF with small bilateral effusions and bibasilar atelectasis and/or infiltrates. EKG Initial EKG: Attestation: I personally reviewed and interpreted this EKG as follows: Comments: Sinus rhythm with a rate of [address] changes <Dr. Cristopher Hester, DO - Last Filed: 05/29/23 17:25> [facility] MDM Narrative Medical decision making narrative: Presents with progressive decline over the last week. Per family member she is now requiring oxygen for the last week. She has had a cough. Patient herself is a poor historian some of the history comes from family members who were not initially present during my initial evaluation of the patient. This morning apparently nobody could arouse the patient. IV line established on arrival. CT scan of the brain without contrast obtained was essentially unremarkable. CBC with differential was unremarkable. Chemistries unremarkable other than potassium of 5.7 however there was hemolysis. BUN was 37 and creatinine 0.84. Lactate was normal 1.5. Total bilirubin 2.2 and AST 122, ALT 124, and alk phos 514. Lipase normal at 35. Urinalysis unremarkable. I did obtain CT scan of the abdomen pelvis given tenderness on exam and she was noted to have small amount of fluid around the liver uncertainty as to the cause radiologist question trauma however per family there is no history of trauma. I did start patient empirically on Rocephin and Zithromax. Case discussed with hospitalist to evaluate patient for admission. Hospitalist was able to obtain more information from family and apparently patient has had history of elevated ammonia levels and I will order an ammonia level which may explain some of her mental status change. Patient blood pressure somewhat soft in the department with last systolic in the 90s. Patient does have a low-grade temp. I did order blood cultures. Patient will be admitted for IV hydration and antibiotics. I also did order a BNP. Also ordered a D-dimer which is pending at the request of hospitalist. Addendum: The CTA of the chest returned while the patient was in the emergency department. This is positive for bilateral pulmonary embolism with saddle component. Her troponin is normal. She is still on supplemental oxygen. Blood pressure heart rate acceptable. I spoke with Dr. Frederic Newell from medicine. We will be placing her on a heparin drip. Lab Data Labs: Laboratory Results - last 24 hr 05/29/23 05/29/23 05/29/23 11:35 11:55 12:00 WBC 8.4 RBC 5.49 H Hgb 13.3 Hct 41.9 MCV 76.3 L MCH 24.2 L MCHC 31.7 L RDW Std Deviation 60.6 H RDW Coeff of Chris 23.3 H Plt Count 105 L MPV 10.2 Immature Gran % (Auto) 0.800 Neut % (Auto) 78.4 H Lymph % (Auto) 14.4 L [place] % (Auto) 5.9 Eos % (Auto) 0.1 Baso % (Auto) 0.4 Absolute Neuts (auto) 6.6 Absolute Lymphs (auto) 1.20 Nucleated RBC % 0 Differential Comment SCANNED Anisocytosis 1+ D-Dimer Quant (PE/DVT) 0.85 H* Sodium 137 Potassium 5.7 H Chloride 108 H Carbon Dioxide 26.0 Anion Gap 3 L BUN 37 H Creatinine 0.84 Estim Creat Clear Calc 40.93 Est GFR (MDRD) Af Amer 84 Est GFR (MDRD) Non-Af 70 BUN/Creatinine Ratio 43.8 H Glucose 200 H Lactic Acid Calcium 10.0 Total Bilirubin 2.20 H AST 122 H ALT 124 H Alkaline Phosphatase 514 H Troponin I High Sens 15 B-Natriuretic Peptide 63.0 Total Protein 4.4 L Albumin 1.7 L Globulin 2.7 Albumin/Globulin Ratio 0.6 L Lipase 35 Urine Color Ivy Urine Clarity Sl. Cloudy Urine pH 5.0 Ur Specific [place] 1.020 Urine Protein 30 H Urine Glucose (UA) 50 H Urine Ketones 5 H Urine Occult Blood Negative Urine Nitrite Negative Urine Bilirubin 1 H Urine Urobilinogen 1 H Ur Leukocyte Esterase 100 H Urine RBC 0 SEEN Urine WBC 0-5 SEEN Ur Squamous Epith Cells 0-5 SEEN Calcium Oxalate Crystal 1+ Urine Bacteria 1+ Urine Mucus 1+ 05/29/23 12:20 WBC RBC Hgb Hct MCV MCH MCHC RDW Std Deviation RDW Coeff of Chris Plt Count MPV Immature Gran % (Auto) Neut % (Auto) Lymph % (Auto) [place] % (Auto) Eos % (Auto) Baso % (Auto) Absolute Neuts (auto) Absolute Lymphs (auto) Nucleated RBC % Differential Comment Anisocytosis D-Dimer Quant (PE/DVT) Sodium Potassium Chloride Carbon Dioxide Anion Gap BUN Creatinine Estim Creat Clear Calc Est GFR (MDRD) Af Amer Est GFR (MDRD) Non-Af BUN/Creatinine Ratio Glucose Lactic Acid 1.5 Calcium Total Bilirubin AST ALT Alkaline Phosphatase Troponin I High Sens B-Natriuretic Peptide Total Protein Albumin Globulin Albumin/Globulin Ratio Lipase Urine Color Urine Clarity Urine pH Ur Specific [place] Urine Protein Urine Glucose (UA) Urine Ketones Urine Occult Blood Urine Nitrite Urine Bilirubin Urine Urobilinogen Ur Leukocyte Esterase Urine RBC Urine WBC Ur Squamous Epith Cells Calcium Oxalate Crystal Urine Bacteria Urine Mucus Radiography Diagnostic Testing: Clinical Impression(s) from Imaging Studies Brain CT 05/29/23 12:06 IMPRESSION: Normal unenhanced CT scan of the brain. Electronically Signed: Jesse Grider MD at 13:30 EDT , Abdomen/Pelvis CT 05/29/23 12:07 IMPRESSION: Bibasilar pulmonary infiltrates and minimal bilateral pleural effusions. Findings suggestive of a small amount of subcapsular hepatic fluid. Is there a history of trauma. Mild splenomegaly. Electronically Signed: Jesse Grider MD at 13:36 EDT , Chest X-Ray 05/29/23 13:12 IMPRESSION: Mild degree of CHF with small bilateral effusions and bibasilar atelectasis and/or infiltrates. Cardiomegaly. Electronically Signed: Jesse Grider MD at 13:39 EDT , Chest CTA 05/29/23 16:14 IMPRESSION: undefined ADDENDUM: 05/29/23 1734 IMPRESSION: undefined Discharge Plan Dx/Rx/DC Orders Clinical Impression: CHF (congestive heart failure), Dyspnea, Altered mental status, Pneumonia, Pulmonary embolism, bilateral Disposition Disposition: Acute Care Hospital [facility] Discharge Date/Time: 05/29/23 18:05
[2023-05-29 12:23] LABS: Absolute Neutrophil Count 6.6 X10^3/uL (2.0-7.7); Basophil# 0.03 X10^3/uL; Basophil% 0.4 % (0-1); Eosinophil# 0.01 X10^3/uL; Eosinophils% 0.1 % (0-5); Hematocrit 41.9 % (37-47); Hemoglobin 13.3 g/dL (12.0-15.0); Lymphocyte % 14.4 % (19-41); Mean Corp Hgb Conc 31.7 g/dL (32-36); Mean Corpuscular Hgb 24.2 pg (27.0-32.0); Mean Corpuscular Volume 76.3 fL (81-99); Mean Platelet Vol. 10.2 fl (6.2-12.0); Monocyte# 0.49 X10^3/uL; Monocyte% 5.9 % (0-10); NRBC Flagged by Analyzer 0 % (0-5); Neutrophil # 6.55 X10^3/uL (2.7-7.7); Neutrophil % 78.4 % (47-70); POSITIVE MORPHOLOGY YES; Platelet Count 105 K/mm3 (150-450); RBC Distribution Width CV 23.3 % (11.6-14.6); RBC Distribution Width SD 60.6 fl (35.1-43.9); Red Blood Count 5.49 M/mm3 (4.2-5.4); White Blood Count 8.4 K/mm3 (4.4-11.0)
[2023-05-29 12:23] LABS: Red Blood Cells-Urine 0 SEEN /hpf (0-5)
[2023-05-29 12:27] LABS: Differential Indicated SCAN CRITERIA MET
[2023-05-29 12:32] LABS: Color, Urine Amber (Yellow); Glucose, Dipstick 50 mg/dl (Normal); Ketone-Dipstick 5 mg/dl (Negative); Leukocyte Esterase-Dipstick 100 /ul (Negative); Nitrite-Dipstick Negative (Negative); Occult Blood-Urine Negative /ul (Negative); Protein-Dipstick 30 mg/dl (Negative); Urine Clarity Sl. Cloudy (Clear); Urine Urobilinogen 1 mg/dl (Normal)
[2023-05-29 12:34] LABS: Urine Bilirubin Dipstick 1 mg/dL (Negative)
[2023-05-29] MEDS: 0.9% Normal Saline (1000mL) 1,000 ML 150 ML IV (12:40)
[2023-05-29 12:43] LABS: ALB/GLOB Ratio 0.6 RATIO (0.9-2.4); AST(SGOT) 122 U/L (15-37); Alanine Aminotransfer ALT/SGPT 124 U/L (13-56); Albumin, Serum 1.7 g/dL (3.2-5.0); Alkaline Phosphatase 514 U/L (45-117); Anion Gap 3 (5-15); BUN 37 mg/dL (7-18); BUN/Creat Ratio 43.8 RATIO (10-20); Chloride 108 mmol/L (98-107); Creatinine, Serum 0.84 mg/dL (0.55-1.02); EST Glomerular Filtration Rate 70 mL/min (>60); Est Glom Filt Rate - Afr Amer 84 mL/min (>60); Estimated Creatinine Clearance 40.93 ml/min; Globulin 2.7 g/dL (2.2-4.2); Glucose 200 mg/dL (74-106); Lipase 35 U/L (13-75); Potassium 5.7 mmol/L (3.5-5.1); Protein, Total 4.4 g/dL (6.4-8.2); Sodium Level 137 mmol/L (136-145); Troponin-I HS 15 pg/mL (3.0-54.0)
[2023-05-29 12:44] LABS: Anisocytosis 1+; Differential Comment SCANNED
[2023-05-29 12:46] LABS: Bacteria 1+ /hpf (None Seen); Mucous, Urine 1+ /hpf (<or=2+); Squamous Epithelial Cells - UA 0-5 SEEN /hpf (5-10); White Blood Cells 0-5 SEEN /hpf (0-5)
[2023-05-29 12:47] LABS: Calcium Oxalate Crystals Ur 1+ /hpf (<or=2+)
[2023-05-29 13:02] LABS: Lactic Acid 1.5 mmol/L (0.4-1.9)
--- NOTE | 2023-05-29 13:12 | RAD_ITS ---
STUDY: X-RAY CHEST REASON FOR EXAM: Female, 77 years old. Dyspnea TECHNIQUE: Single AP portable view of the chest. COMPARISON: Comparison is made with prior study dated May 20, 2023. FINDINGS: EKG electrodes are seen. Poor inspiratory effort. Passive congestion and CHF. Increased markings at the lung bases suggest bibasilar atelectasis and/or infiltrate. Normal size heart. Normal mediastinum and javy. Normal visualized pulmonary arteries. There is atherosclerotic tortuosity of the aortic arch and descending thoracic aorta. There are diffuse degenerative changes of the visualized thoracic spine. There is degenerative osteoarthritis of the bilateral shoulders. There is no demonstrated abnormality of the visualized soft tissue structures of the upper abdomen. RAD/Chest 1 View (Portable) IMPRESSION: Mild degree of CHF with small bilateral effusions and bibasilar atelectasis and/or infiltrates. Cardiomegaly. Electronically Signed: Jesse Grider MD at 13:39 EDT ,
[2023-05-29] MEDS: Ceftriaxone 1 GM/50 ML BAG IV (14:48)
--- NOTE | 2023-05-29 15:13 | NURSING ---
MED SURG TERELETSSUN DYSPNEA, ALTERED MENTAL STATUS, PNEUMONIA
[2023-05-29] MEDS: Azithromycin 500 MG in Dextrose 5%-Water (250mL Bag) 250 ML 250 MG IV (15:30)
[2023-05-29 16:01] LABS: D-Dimer Quantitative (DVT/PE) 0.85 FEU/ug/m (0.27-0.49)
--- NOTE | 2023-05-29 16:14 | CT_ITS ---
EXAM: CT pulmonary angiogram. HISTORY: elevated d-dimer, dyspnea TECHNIQUE: CTA Chest WO/W Contrast Injection A radiation dose optimization technique was used for this scan. Multiplanar reconstructions were obtained. 3-D postprocessing was performed. COMPARISON: None. LIMITATIONS: Motion artifact. LUNGS: Compressive atelectasis is associated with the bilateral pleural effusions. Superimposed airspace disease is suspected in the bilateral lower lobes. Additional patchy opacities bilaterally are predominantly groundglass attenuation. Few small peripheral somewhat wedge-shaped opacities predominantly in the right upper lobe raise the possibility of pulmonary infarcts. PULMONARY VESSELS: A filling defect is at the bifurcation of the right and left main pulmonary arteries consistent with saddle embolus. The embolus extends into the right main pulmonary artery into the upper and middle lobar branches. Segmental and/or subsegmental pulmonary emboli are in the right upper lobe and the superior segment of the right lower lobe. Possible subsegmental pulmonary embolus in the medial segment of the right lower lobe. The embolus in the left main pulmonary artery extends into a lobar and segmental/subsegmental branch in the left upper lobe. Possible additional subsegmental pulmonary emboli bilaterally. Motion artifact limits evaluation. PLEURA: Small bilateral pleural effusions.. MEDIASTINUM: Normal. HEART: Mildly enlarged. Inward bowing of the interventricular septum is suggestive of right heart strain. Small pericardial effusion. AORTA: No thoracic aortic aneurysm or dissection. UPPER ABDOMEN: The spleen is partially visualized, but likely enlarged. Mild perihepatic free fluid. BONES/SOFT TISSUES: No acute fracture. OTHER: Few suspected thyroid nodules. The largest measures 8 mm.. CONCLUSION: Motion artifact. Saddle pulmonary embolus with lobar and segmental/subsegmental pulmonary emboli bilaterally. Small bilateral pleural effusions. Pulmonary opacities bilaterally may represent pulmonary edema and/or infection. Few small possible pulmonary infarcts. N.B. : The above Results were Read Back by Elvin Yusuf MD to Carloz Freeman MD, and understanding confirmed on 05/29/2023 17:20:26 (ET). Electronically Signed: Elvin Yusuf MD at 17:27 EDT , CT/CTA Chest W/WO Contrast IMPRESSION: undefined
[2023-05-29 16:36] LABS: Ammonia < 10.0 umol/L (11-32)
[2023-05-29] MEDS: HEPARIN/D5w 25,000 UNITS 25,000 UNITS/250 ML IV.SOLN. 10 UNITS CONT INF (17:49)
[2023-05-29] MEDS: Heparin Injection (Vial) 5,000 UNIT/ML VIAL 4500 UNIT IV (17:50)
[2023-05-29 18:09] LABS: Partial Thromboplast Time 37.1 Seconds (24.1-36.2)
--- NOTE | 2023-05-29 20:23 | HP.PCM.HOS_ITS ---
HPI - General General Date of Admission: 05/29/23 Date of Service: 05/29/23 Chief Complaint: Lethargy, increased confusion, shortness of breath HPI Narrative EULALIA LUONG, is a 77 F who presents to the emergency room at [facility] [place] after being sent in from a local extended care facility due to increased confusion today, lethargy, and shortness of breath. Patient had been at the retirement approximately 2 weeks, she had been at a hospital in [place], [place] for several days due to a complicated urinary tract infection, she was transferred from that hospital directly to a local extended care facility for rehab services. Patient has a long history of dementia according to the daughters who are in the room at the time of my examination, she has had dementia for approximately 8 years, the daughters stated that they wish no extensive testing be performed on their mother but they would like her treated if there is a medical issue. Work-up in the emergency room included a CBC which revealed a normal white blood cell count, patient's CHEM panel showed an elevated potassium of 5.7, BUN was 37, glucose was 200, bilirubin was 2.2, AST was elevated at 122, ALT was 124, and alkaline phosphatase was 514. I had the emergency room physician drawn ammonia level because the daughter stated that when the patient was in the hospital recently her ammonia level was elevated at 55, patient's ammonia level was less than 10. Patient's urinalysis was remarkable only for +1 bacteria. I also had the emergency room physician draw a D-dimer on the patient which was elevated, a CTA of the chest was then performed which showed extensive pulmonary emboli in both lungs along with a saddle pulmonary embolus. There were also pulmonary opacities bilaterally which may represent pulmonary edema and/or infection, there is also noted to be a few small possible pulmonary infarcts. Patient required supplemental oxygen at low flow in the emergency room at 2 L. Patient was lethargic, she appeared to be confused but not in any distress. I talked at length with the patient's daughters, I also asked them whether they thought it was appropriate to have hospice talk with them and they agreed. Patient has not been eating well at the retirement and has been declining in her function overall. Patient will be admitted to PCU, she was started on IV heparin, she was given IV antibiotics in the emergency room but this examiner does not feel the patient has a definitive pneumonia and therefore I will not continue antibiotic coverage. Patient's pulse ox will be monitored, she will be seen by PT OT and speech therapy, I also discussed her decreased oral intake with the patient's daughters, we have decided after the discussion that the patient would not have a temporary or permanent feeding tube inserted. The etiology of the patient's elevated liver enzymes is not apparent. I talked to the patient's daughters about an echocardiogram on the patient and we have decided that we will not have the patient undergo an echocardiogram. Patient is a DNR CC arrest without intubation. [facility] Medical History (Updated 05/29/23 @ 18:38 by Ines Ordaz) Anxiety CPAP (continuous positive airway pressure) dependence Dementia Depression Diabetes Diabetic acidosis, type II Hyperlipidemia Kidney disease Non-smoker Pulmonary embolism Urinary and bowel incontinence UTI (urinary tract infection) Home Medications donepezil 10 mg tablet 10 mg PO QHS 05/20/23 [History Last Taken 05/28/23] oxybutynin chloride 10 mg tablet,extended release 24 hr 10 mg PO DAILY 05/20/23 [History Last Taken 05/29/23] aluminum-magnesium hydroxide 225 mg-200 mg/5 mL oral suspension 30 ml PO Q4H PRN GI DISTRESS 05/29/23 [History Last Taken 05/17/23] ascorbic acid (vitamin C) 500 mg tablet 500 mg PO DAILY SKIN 05/29/23 [History Last Taken 05/29/23] fluoxetine 40 mg capsule 40 mg PO BID DEPRESSION 05/29/23 [History Last Taken 05/29/23] insulin lispro 100 unit/mL subcutaneous pen (Humalog KwikPen (U-100) Insulin) See Protocol subcut ACHS DM 05/29/23 [History Last Taken 05/29/23] mirtazapine 15 mg tablet (Remeron) 7.5 mg PO QHS APPETITE 05/29/23 [History Last Taken 05/28/23] multivit,stress formula-zinc tablet (Stress Formula with Zinc tablet) 1 tab PO DAILY SKIN 05/29/23 [History Last Taken 05/29/23] multivitamin,tx-minerals 1 tab PO DAILY SUPPLEMENT 05/29/23 [History Last Taken 05/29/23] nystatin 100,000 unit/mL oral suspension 400,000 unit PO DAILY 05/29/23 [History Last Taken 05/28/23] ondansetron 4 mg disintegrating tablet 4 mg PO Q8H PRN nausea and vomiting 05/29/23 [History Last Taken 05/27/23] pantoprazole 40 mg tablet,delayed release 40 mg PO DAILY GERD 05/29/23 [History Last Taken 05/29/23] potassium chloride 10 mEq tablet,extended release (K-Tab) 20 meq PO DAILY 05/29/23 [History Last Taken 05/29/23] sodium chloride 1,000 mg soluble tablet 1,000 mg PO DAILY 05/29/23 [History Last Taken 05/29/23] Allergy/AdvReac Type Severity Reaction Status Date / Time No Known Allergies Allergy Verified 05/29/23 16:23 Social History Smoking Status: Never smoker ROS ROS Narrative Review of systems was unobtainable due to patient's lethargy and confusion, medical information was obtained from the patient's daughters who were in the room at the time my examination Vital Signs Vital Signs Vital Signs: 05/29/23 11:50 05/29/23 12:27 05/29/23 12:55 Temperature 98.2 F 98.6 F Temperature Source Temporal Oral Pulse Rate 110 H 93 Respiratory Rate 18 22 H Respiratory Effort Short of Breath Respiratory Depth Normal Respiratory Pattern Normal Blood Pressure 132/72 H 119/75 Blood Pressure Mean 92 89 Blood Pressure Source Blood Pressure Position Blood Pressure Location Pulse Ox 96 97 Oxygen Delivery Method Nasal Cannula Nasal Cannula Nasal Cannula Oxygen Flow Rate (L/min) 2 2 3 05/29/23 14:00 05/29/23 14:49 05/29/23 15:00 Temperature 99.0 F 99.1 F Temperature Source Oral Oral Pulse Rate 99 96 99 Respiratory Rate 25 H 24 H 24 H Respiratory Effort Respiratory Depth Respiratory Pattern Blood Pressure 112/62 120/65 119/62 Blood Pressure Mean 78 83 81 Blood Pressure Source Blood Pressure Position Blood Pressure Location Pulse Ox 100 97 93 Oxygen Delivery Method Nasal Cannula Nasal Cannula Nasal Cannula Oxygen Flow Rate (L/min) 3 3 3 05/29/23 15:14 05/29/23 16:00 05/29/23 17:00 Temperature 99.1 F 98.5 F 98.6 F Temperature Source Oral Oral Oral Pulse Rate 99 93 94 Respiratory Rate 22 H 22 H 24 H Respiratory Effort Respiratory Depth Respiratory Pattern Blood Pressure 105/61 102/55 L 117/61 Blood Pressure Mean 75 70 79 Blood Pressure Source Blood Pressure Position Blood Pressure Location Pulse Ox 93 95 93 Oxygen Delivery Method Nasal Cannula Nasal Cannula Room Air Oxygen Flow Rate (L/min) 3 3 05/29/23 18:38 05/29/23 19:00 Temperature 97.7 F L Temperature Source Oral Pulse Rate 100 Respiratory Rate 20 H Respiratory Effort Non-Labored Respiratory Depth Shallow Respiratory Pattern Normal Blood Pressure 107/65 Blood Pressure Mean 79 Blood Pressure Source Monitor Blood Pressure Position Semi-Fowlers Blood Pressure Location Left Arm Pulse Ox 96 95 Oxygen Delivery Method Nasal Cannula Nasal Cannula Oxygen Flow Rate (L/min) 3 3 Weight Weight: 68.4 kg Body Mass Index (BMI) 24.3 Physical Exam Const Constitutional Narrative: Patient appears older than her stated age, she is lethargic and confused General Appearance: well developed HEENT normocephalic, head/scalp atraumatic and hearing grossly normal bilaterally HEENT Narrative: Mucous membranes were dry Eyes PERRL, EOMs intact bilaterally and conjunctivae normal Neck supple, no JVD, thyroid normal and no carotid bruits General: trachea midline Resp normal respiratory effort, no retractions and no use of accessory muscles Resp Narrative: Decreased breath sounds at the bases are noted bilaterally Auscultation: Negative for rales, rhonchi or wheezes Cardio regular rate, regular rhythm, no murmurs, no rub and no gallops GI normal to inspection, nondistended, normoactive bowel sounds, soft to palpation, non-tender and non-distended Extremity Extremity Narrative: There is generalized edema noted over both lower legs, there are Miles wraps in place, there is scattered areas of eschar noted over both lower leg Skin Skin Narrative: Patient has a breakdown of 3 small areas on the sacral area, these appear to be pressure injuries and are stage II, the largest 1 of which is approximately 2 cm in diameter, there are 2 smaller ones that are approximately 1 cm in diameter, there is no discharge noted from the areas Neuro CN's II-XII intact bilaterally Neuro Narrative: Patient is lethargic, she does not answer any questions, she does not carry on any conversation Psych Psych Narrative: Patient is confused and lethargic Results Lab / Micro Data 05/29/23 11:55 05/29/23 11:55 Labs: Laboratory Results - last 24 hr 05/29/23 11:35: D-Dimer Quant (PE/DVT) 0.85 H*, B-Natriuretic Peptide 63.0 05/29/23 11:55: WBC 8.4, RBC 5.49 H, Hgb 13.3, Hct 41.9, MCV 76.3 L, MCH 24.2 L, MCHC 31.7 L, RDW Std Deviation 60.6 H, RDW Coeff of Chris 23.3 H, Plt Count 105 L, MPV 10.2, Immature Gran % (Auto) 0.800, Neut % (Auto) 78.4 H, Lymph % (Auto) 14.4 L, [place] % (Auto) 5.9, Eos % (Auto) 0.1, Baso % (Auto) 0.4, Absolute Neuts (auto) 6.6, Absolute Lymphs (auto) 1.20, Nucleated RBC % 0, Differential Comment SCANNED, Anisocytosis 1+, Sodium 137, Potassium 5.7 H, Chloride 108 H, Carbon Dioxide 26.0, Anion Gap 3 L, BUN 37 H, Creatinine 0.84, Estim Creat Clear Calc 40.93, Est GFR (MDRD) Af Amer 84, Est GFR (MDRD) Non-Af 70, BUN/Creatinine Ratio 43.8 H, Glucose 200 H, Calcium 10.0, Total Bilirubin 2.20 H, AST 122 H, ALT 124 H, Alkaline Phosphatase 514 H, Troponin I High Sens 15, Total Protein 4.4 L, Albumin 1.7 L, Globulin 2.7, Albumin/Globulin Ratio 0.6 L, Lipase 35 05/29/23 12:00: Urine Color Ivy, Urine Clarity Sl. Cloudy, Urine pH 5.0, Ur Specific [place] 1.020, Urine Protein 30 H, Urine Glucose (UA) 50 H, Urine Ketones 5 H, Urine Occult Blood Negative, Urine Nitrite Negative, Urine Bilirubin 1 H, Urine Urobilinogen 1 H, Ur Leukocyte Esterase 100 H, Urine RBC 0 SEEN, Urine WBC 0-5 SEEN, Ur Squamous Epith Cells 0-5 SEEN, Calcium Oxalate Crystal 1+, Urine Bacteria 1+, Urine Mucus 1+ 05/29/23 12:20: Lactic Acid 1.5 05/29/23 15:12: Ammonia < 10.0 L 05/29/23 17:37: APTT 37.1 H Micro: Microbiology 05/29/23 12:20 Nasal Secretion SARS-CoV-2 & FLU Antigen (Rapid) - Final Radiology Impression Brain CT 05/29/23 12:06 IMPRESSION: Normal unenhanced CT scan of the brain. Electronically Signed: Jesse Grider MD at 13:30 EDT , Abdomen/Pelvis CT 05/29/23 12:07 IMPRESSION: Bibasilar pulmonary infiltrates and minimal bilateral pleural effusions. Findings suggestive of a small amount of subcapsular hepatic fluid. Is there a history of trauma. Mild splenomegaly. Electronically Signed: Jesse Grider MD at 13:36 EDT , Chest X-Ray 05/29/23 13:12 IMPRESSION: Mild degree of CHF with small bilateral effusions and bibasilar atelectasis and/or infiltrates. Cardiomegaly. Electronically Signed: Jesse Grider MD at 13:39 EDT , Chest CTA 05/29/23 16:14 IMPRESSION: undefined ADDENDUM: 05/29/23 1734 IMPRESSION: undefined Assessment & Plan Assessment/Plan (1) Pulmonary embolism, bilateral: PLAN: Plan 1. Extensive bilateral pulmonary emboli-patient will be admitted to PCU, she is placed on a heparin drip, when she is more alert she can be transitioned over to oral anticoagulation, again I do not feel it would benefit the patient to undergo an echocardiogram due to her poor overall functional status #2 hypoxia secondary to #1-I do not feel the patient has pneumonia at the present time, pulse ox will be monitored, labs will be monitored #3 end-stage dementia-I believe the patient would be candidate for hospice, I talked to the daughters briefly about this and they did not want the patient to be given morphine, I told them that I would have hospice talk to them and see if the patient would be appropriate to go home with hospice-the daughters do not want the patient to go to the hospice facility for inpatient care. #4 type 2 diabetes-patient's blood sugars will be monitored, sliding scale insulin will be used for blood sugar control #5 bilateral lower lobe infiltrates-I question whether this could be atelectasis, I do not think the patient has congestive heart failure pneumonia, according to the daughters, she has had no history of congestive heart failure #6 chronic protein and caloric malnutrition from lack of intake due to dementia- nutritional services will see the patient, this will be problematic given that the patient's family does not want to proceed with a feeding tube, I do not think a feeding tube would overall benefit the patient in the long run. #7 hyperkalemia-I do not feel the patient needs Kayexalate, I will recheck her labs in the morning. Total clinical time spent by myself addressing the patient's medical issues, reviewing all of her data, and collaborating with the patient's care team: 75 minutes Charges/Coding Visit Charges Inpatient E&M: 44377 Init Hosp L3
[2023-05-29] MEDS: 0.9% Normal Saline (1000mL) 1,000 ML 125 ML IV (23:23)
[2023-05-29] MEDS: 0.9% Saline Lock 10 ML Syringe IV (23:24)
[2023-05-29] MEDS: Insulin Lispro 100 UNIT/ML INSULN.PEN SC (23:24)
[2023-05-29] MEDS: Menthol/Lanolin/Calamine/Znox 113 GM Tube 1 APPLIC TOPICAL (23:25)
[2023-05-29 23:34] LABS: Bedside Glucose 198 mg/dL (74-106)
[2023-05-30] VITALS (7 sets, daily range): BP systolic 120–136; BP diastolic 59–72; PULSE 89–101; RESP 14–20; TEMP 36.4–37.2; O2SAT 92–96
[2023-05-30] MEDS: Menthol/Lanolin/Calamine/Znox 113 GM Tube 1 APPLIC TOPICAL ×2 (05:04→21:46)
[2023-05-30 05:18] LABS: Absolute Lymphocyte Count 0.98 X10^3/uL (0.83-4.51); Absolute Neutrophil Count 5.2 X10^3/uL (2.0-7.7); Basophil# 0.02 X10^3/uL; Basophil% 0.3 % (0-1); Eosinophil# 0.03 X10^3/uL; Eosinophils% 0.4 % (0-5); Hematocrit 37.9 % (37-47); Hemoglobin 12.1 g/dL (12.0-15.0); Lymphocyte # 0.98 X10^3/ul (0.83-4.51); Lymphocyte % 14.4 % (19-41); Mean Corp Hgb Conc 31.9 g/dL (32-36); Mean Corpuscular Hgb 24.6 pg (27.0-32.0); Mean Corpuscular Volume 77.2 fL (81-99); Mean Platelet Vol. 10.2 fl (6.2-12.0); Monocyte# 0.51 X10^3/uL; Monocyte% 7.5 % (0-10); NRBC Flagged by Analyzer 0 % (0-5); Neutrophil # 5.21 X10^3/uL (2.7-7.7); Neutrophil % 76.4 % (47-70); POSITIVE MORPHOLOGY YES; Platelet Count 106 K/mm3 (150-450); RBC Distribution Width CV 23.9 % (11.6-14.6); RBC Distribution Width SD 62.9 fl (35.1-43.9); Red Blood Count 4.91 M/mm3 (4.2-5.4); White Blood Count 6.8 K/mm3 (4.4-11.0)
[2023-05-30 05:22] LABS: Differential Indicated SCAN CRITERIA MET
[2023-05-30 05:34] LABS: Anion Gap 4 (5-15); BUN 33 mg/dL (7-18); BUN/Creat Ratio 53.6 RATIO (10-20); Calcium,Total 9.3 mg/dL (8.5-10.1); Chloride 112 mmol/L (98-107); Creatinine, Serum 0.62 mg/dL (0.55-1.02); EST Glomerular Filtration Rate 100 mL/min (>60); Est Glom Filt Rate - Afr Amer 121 mL/min (>60); Glucose 176 mg/dL (74-106); Potassium 4.4 mmol/L (3.5-5.1); Sodium Level 140 mmol/L (136-145)
[2023-05-30 05:40] LABS: Partial Thromboplast Time > 200.0 Seconds (24.1-36.2)
[2023-05-30 06:47] LABS: Differential Comment SCANNED
[2023-05-30] MEDS: Insulin Lispro 100 UNIT/ML INSULN.PEN SC (06:47)
[2023-05-30] MEDS: 0.9% Normal Saline (1000mL) 1,000 ML 125 ML IV (06:47)
[2023-05-30 06:48] LABS: Anisocytosis 1+; Microcytosis 1+
[2023-05-30 06:54] LABS: Partial Thromboplast Time > 200.0 Seconds (24.1-36.2)
[2023-05-30 07:08] LABS: Bedside Glucose 174 mg/dL (74-106)
--- NOTE | 2023-05-30 07:52 | PN.HOSP_ITS ---
Reason for Visit Reason for Visit: Lethargy/confusion/shortness of breath Subjective Subjective Mrs. Dsouza is a 77-year-old female who was sent to the emergency department at [facility] on 05/29/2023 from a local extended care facility due to increased confusion, lethargy, and shortness of breath. The patient has been in shelter for approximately 2 weeks. She was recently in the hospital and [place], [place] for several days due to a complicated UTI and was [facility]. Patient has a history of dementia according to her daughters. Her dementia has been progressive over the last 8 years and family wishes that no extensive testing be performed on their mother but they would like her treated for any acute medical issues. It sounds as if she has had significant failure to thrive over the last several months. She not been eating well and her overall function has been declining. Upon presentation her temperature was 98.2, heart rate 110, blood pressure 132/72, respiratory rate 18 and oxygen saturations were 96% on 2 L. There is no documentation of room air oxygen saturation. Her CBC shows no white count but does have a mild left shift with a 76.4% neutrophilia. Hemoglobin is normal however her MCV is low indicating her cytosis and her platelet count is 106,000. Her chemistry panel showed hyperkalemia which has resolved with hydration, elevated BUN at 37, elevated transaminases with total bilirubin of 2.2, AST at 122, ALT of 124 and an alk phos of 514. Her ammonia level is normal. Her albumin is 1.7. D-dimer was found to be slightly elevated and CTA of her chest was performed. This showed saddle embolus with lobar and segmental pulmonary emboli, small bilateral pleural effusions and pulmonary opacities bilaterally with few possible small infarcts. Patient was started on a heparin drip and admitted to PCU. Extensive discussion was had with the family with regards to her lab abnormalities and her decreased p.o. intake. Family did not want to pursue any other aggressive testing with regards to her liver enzymes or cardiac function and did not want to pursue a temporary or permanent feeding tube. They did agree to hospice consultation and will be evaluated prior to discharge. Patient not eating at this time. Daughter states that at least 4 times since she moved in with her in early March the patient has indicated that she is ready to and go see Daughter is at the bedside and states that she is amenable to discussing overall care with hospice at this time. Objective Data Objective Data Vital Signs: Vital Signs Temp Pulse Resp BP Pulse Ox O2 Del Method O2 Flow Rate 97.6 F L 98 20 H 127/72 H 94 Nasal Cannula 3 05/30/23 04:00 05/30/23 04:00 05/30/23 04:00 05/30/23 04:00 05/30/23 04:00 05/30/23 04:00 05/29/23 21:30 Oxygen Flow Rate (L/min) 3 Oxygen Delivery Method Nasal Cannula Weight: 68.4 kg Body Mass Index (BMI) 24.3 Intake & Output: Intake and Output for Last 24 Hours 05/28/23 05/29/23 05/30/23 23:59 23:59 23:59 Intake Total 1305 / 1305 1047.5 / 1047.5 Balance 1305 / 1305 1047.5 / 1047.5 Lab / Micro Data 05/30/23 05:00 05/30/23 05:00 Labs: Laboratory Results - last 24 hr 05/29/23 11:35: D-Dimer Quant (PE/DVT) 0.85 H*, B-Natriuretic Peptide 63.0 05/29/23 11:55: WBC 8.4, RBC 5.49 H, Hgb 13.3, Hct 41.9, MCV 76.3 L, MCH 24.2 L, MCHC 31.7 L, RDW Std Deviation 60.6 H, RDW Coeff of Chris 23.3 H, Plt Count 105 L, MPV 10.2, Immature Gran % (Auto) 0.800, Neut % (Auto) 78.4 H, Lymph % (Auto) 14.4 L, [place] % (Auto) 5.9, Eos % (Auto) 0.1, Baso % (Auto) 0.4, Absolute Neuts (auto) 6.6, Absolute Lymphs (auto) 1.20, Nucleated RBC % 0, Differential Comment SCANNED, Anisocytosis 1+, Sodium 137, Potassium 5.7 H, Chloride 108 H, Carbon Dioxide 26.0, Anion Gap 3 L, BUN 37 H, Creatinine 0.84, Estim Creat Clear Calc 40.93, Est GFR (MDRD) Af Amer 84, Est GFR (MDRD) Non-Af 70, BUN/Creatinine Ratio 43.8 H, Glucose 200 H, Calcium 10.0, Total Bilirubin 2.20 H, AST 122 H, ALT 124 H, Alkaline Phosphatase 514 H, Troponin I High Sens 15, Total Protein 4.4 L, Albumin 1.7 L, Globulin 2.7, Albumin/Globulin Ratio 0.6 L, Lipase 35 05/29/23 12:00: Urine Color Ivy, Urine Clarity Sl. Cloudy, Urine pH 5.0, Ur Specific [place] 1.020, Urine Protein 30 H, Urine Glucose (UA) 50 H, Urine Ketones 5 H, Urine Occult Blood Negative, Urine Nitrite Negative, Urine Bilirubin 1 H, Urine Urobilinogen 1 H, Ur Leukocyte Esterase 100 H, Urine RBC 0 SEEN, Urine WBC 0-5 SEEN, Ur Squamous Epith Cells 0-5 SEEN, Calcium Oxalate Crystal 1+, Urine Bacteria 1+, Urine Mucus 1+ 05/29/23 12:20: Lactic Acid 1.5 05/29/23 15:12: Ammonia < 10.0 L 05/29/23 17:37: APTT 37.1 H 05/29/23 23:17: POC Glucose 198 H 05/30/23 05:00: WBC 6.8, RBC 4.91, Hgb 12.1, Hct 37.9, MCV 77.2 L, MCH 24.6 L, MCHC 31.9 L, RDW Std Deviation 62.9 H, RDW Coeff of Chris 23.9 H, Plt Count 106 L, MPV 10.2, Immature Gran % (Auto) 1.000 H, Neut % (Auto) 76.4 H, Lymph % (Auto) 14.4 L, [place] % (Auto) 7.5, Eos % (Auto) 0.4, Baso % (Auto) 0.3, Absolute Neuts (auto) 5.2, Absolute Lymphs (auto) 0.98, Nucleated RBC % 0, Differential Comment SCANNED, Anisocytosis 1+, Microcytosis 1+, APTT > 200.0 H*, Sodium 140, Potassium 4.4, Chloride 112 H, Carbon Dioxide 24.0, Anion Gap 4 L, BUN 33 H, Cre atinine 0.62, Estim Creat Clear Calc 44.80, Est GFR (MDRD) Af Amer 121, Est GFR (MDRD) Non-Af 100, BUN/Creatinine Ratio 53.6 H, Glucose 176 H, Calcium 9.3 05/30/23 06:21: APTT > 200.0 H* 05/30/23 06:46: POC Glucose 174 H Micro: Microbiology 05/29/23 12:20 Nasal Secretion SARS-CoV-2 & FLU Antigen (Rapid) - Final Radiography Diagnostic Testing: Radiology Impression Brain CT 05/29/23 12:06 IMPRESSION: Normal unenhanced CT scan of the brain. Electronically Signed: Jesse Grider MD at 13:30 EDT , Abdomen/Pelvis CT 05/29/23 12:07 IMPRESSION: Bibasilar pulmonary infiltrates and minimal bilateral pleural effusions. Findings suggestive of a small amount of subcapsular hepatic fluid. Is there a history of trauma. Mild splenomegaly. Electronically Signed: Jesse Grider MD at 13:36 EDT , Chest X-Ray 05/29/23 13:12 IMPRESSION: Mild degree of CHF with small bilateral effusions and bibasilar atelectasis and/or infiltrates. Cardiomegaly. Electronically Signed: Jesse Grider MD at 13:39 EDT , Chest CTA 05/29/23 16:14 IMPRESSION: undefined ADDENDUM: 05/29/23 1734 IMPRESSION: undefined Physical Exam Const no apparent distress; Negative for well nourished Constitutional Narrative: Thin, older white female lying in bed sleeping, family at bedside, patient quite somnolent at this time, appears comfortable and nontoxic currently, appears chronically ill HEENT head/scalp atraumatic Head and Scalp: normocephalic Resp normal respiratory effort, no retractions, no use of accessory muscles and clear to auscultation bilaterally Auscultation: Negative for rales, rhonchi or wheezes Cardio regular rate, regular rhythm, S1 normal heart sound, S2 normal heart sound, no murmurs, no rub, no gallops and no clicks GI normal to inspection, nondistended, normoactive bowel sounds, soft to palpation and non-tender Extremity Extremity Narrative: No clubbing or cyanosis, 2+ bilateral lower extremity doughy pitting edema Neuro Neuro Narrative: Unable to adequately examine as patient is quite somnolent Psych affect normal Assessment & Plan Assessment/Plan (1) Pulmonary embolism, bilateral: (2) Hyperkalemia: (3) Severe malnutrition: PLAN: Plan Shortness of breath secondary to saddle and extensive bilateral pulmonary emboli -We will continue heparin drip for another 24 hours and then transition to oral anticoagulation -Family has deferred echocardiogram -Plan on transition to Eliquis prior to discharge -Etiology is unclear however unable to rule out malignancy with transaminase elevation however it sounds like immobility has been an issue recently as well. Hyperkalemia -Resolved Severe malnutrition -Patient's p.o. intake has been poor and likely related to her dementia is worsening -Patient has had weight loss -Artificial means of nutrition were discussed with family and they do not want to pursue a temporary or permanent feeding tube -Consult dietitian -Add supplements -Patient is on Remeron for appetite stimulant Concern for dysphagia -Speech therapy consultation placed -Restricted diet initiated until speech therapy can evaluate the patient DM-2 -Patient is on any medic's as an outpatient for this -FEN diabetic diet -SSI -Accu-Cheks as ordered GERD -Continue Protonix neck Dementia -Continue donepezil Depression -Continue fluoxetine but decrease dose as patient is on 80 mg daily with a max dose recommended at 60 mg daily -will decrease to 40 mg daily DVT prophylaxis -Continue heparin drip CODE STATUS -DNR CCA with no intubation as discussed prior to admission with family Charges/Coding Visit Charges Inpatient E&M: 23857 Subs Hosp L2
--- NOTE | 2023-05-30 10:12 | CASEMGMT ---
SW was informed about a Hospice referral. SW went to patient's room. Patient's sister was present. SW introduced self and role at [facility]. SW mentioned that there was a referral for Hospice. Patient's sister said that patient's daughter's are not going to want Hospice. Patient's daughter February will be in soon. SW will check back. Palma Fitzgerald SPECIMEN COLLECTOR LUIS
--- NOTE | 2023-05-30 10:15 | WOUNDNOTE ---
wound photo: buttocks
--- NOTE | 2023-05-30 10:53 | CASEMGMT ---
BARBIE went back to patient's room. Patient's daughter Flower was present. Flower said she would try and talk with Hospice. Flower would like the local Hospice. BARBIE explained how the process works and someone would call Flower to set up an appt. Flower was in agreement with this plan. BARBIE sent a referral to Hospice and also e-mailed referral. Palma Fitzgerald MSW LUIS
[2023-05-30 11:45] LABS: Bedside Glucose 170 mg/dL (74-106)
--- NOTE | 2023-05-30 15:13 | CASEMGMT ---
Patient's family signed Hospice papers. Family would like patient to return to [facility] on Hospice. SW will communicate this with [facility]. Plan: d/c back to [facility] under [facility]. Palma SMITH
--- NOTE | 2023-05-30 15:27 | CASEMGMT ---
Discharge Planning Updates sent to [facility] [place] Aleksandra Alcaraz, Discharge Planning Asst.
[2023-05-30 16:10] LABS: Partial Thromboplast Time 154.9 Seconds (24.1-36.2)
--- NOTE | 2023-05-30 16:19 | CHAPLAIN ---
Type of Pastoral Visit _x__ Initial Visit ___ Follow-up Visit ___ On-call Visit ___ General Patient Visit ___ Spiritual Assessment ___ Family Conference ___ Bereavement ___ Rapid Response ___ Code Blue ___ Other (describe below) Pastoral Care Referral From ___ Patient _x__ Family ___ Nurse ___ Physician ___ Company Manager ___ Roller Bearing Inspector _x__ Other (describe below) Sacrament/Intervention _x__ Active listening ___ Anointing ___ Methodist ___ Bereavement ___ Communion _x__ Deana exploration ___ ___ Life review _x__ Prayer ___ Reconciliation ___ Sacrament of Sick _x__ Supportive presence ___ Wedding ___ Other (describe below) Pastoral Comments patient is sleeping and does not respond to name; three daughters, a granddaughter, and two other visitors are in and out of the room; family has just decided to enter patient in hospice; daughters speak of mother's deana and that she has clearly told them that she is ready to meet Agustín and see our father again; pt has recently spoken to her spouse giving family indication that is desired and near for the patient; daughters are tearful though at this conversation and during time of prayer which is requested by family; pt is said to have had a strong relationship to Agustín and to her lutheran; offer of ongoing support made as desired
[2023-05-30 17:39] LABS: Bedside Glucose 167 mg/dL (74-106)
[2023-05-30] MEDS: Miconazole Nitrate 43 GM Bottle 1 APPLIC TOPICAL (21:56)
[2023-05-31 00:05] LABS: Bedside Glucose 164 mg/dL (74-106)
[2023-05-31 00:31] LABS: Partial Thromboplast Time 62.5 Seconds (24.1-36.2)
[2023-05-31 03:54] VITALS: BP 115/63; PULSE 97; RESP 14; TEMP 36.8; O2SAT 94
[2023-05-31] MEDS: Menthol/Lanolin/Calamine/Znox 113 GM Tube 1 APPLIC TOPICAL ×2 (05:55→14:47)
[2023-05-31 06:43] LABS: Bedside Glucose 165 mg/dL (74-106)
[2023-05-31 07:48] LABS: Partial Thromboplast Time 58.8 Seconds (24.1-36.2)
[2023-05-31] MEDS: Miconazole Nitrate 43 GM Bottle 1 APPLIC TOPICAL (08:38)
[2023-05-31] MEDS: 0.9% Saline Lock 10 ML Syringe IV (08:40)
[2023-05-31 08:44] VITALS: BP 127/70; PULSE 101; RESP 14; TEMP 36.8; O2SAT 92
--- NOTE | 2023-05-31 09:57 | CASEMGMT ---
BARBIE was informed that patient only has [place] Medicaid so that will not cover [facility] stay [facility] the [facility] while on [facility]. Per [facility] if a Medicaid application is completed and patient's resources are under $2,000 they can take patient and assist with the rest of the Medicaid application. BARBIE called patient's daughter Flower. 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 Flower said she is aware of patient's financial situation so she can assist with a Medicaid application. BARBIE let Flower know [facility] has someone who can assist with completing a Medicaid application. Flower said she will be in to the hospital soon. BARBIE left a message for [employer] to complete a Medicaid application with patient's daughter. Palma Fitzgerald OPTICS TECHNICAL OFFICER LUIS
[2023-05-31 10:47] VITALS: BP 125/74; PULSE 102; RESP 20; TEMP 36.6; O2SAT 93
[2023-05-31 11:19] LABS: Bedside Glucose 181 mg/dL (74-106)
[2023-05-31 11:40] VITALS: O2SAT 93
--- NOTE | 2023-05-31 11:53 | PCM.DC.SUM ---
Providers Date of Admission: 05/29/23 Date of Discharge: 05/31/23 Primary Care Physician: Dr. Corazon Sharp, Consultations 05/29/23 19:04 Consult: Hospice / Palliative Care Routine Consulting Provider: [facility] Reason for Consult: Dementia, homegoing needs EMERGENT Consult: No MD Notified: Yes Date Notified: 05/29/23 Time Notified: 17:45 Method of Notification: per hospice social worker 05/29/23 19:53 Consult: Onc/Wound/eligibility clerk Routine Comment: Reason for Consult:: multiple pressure wounds. Reason For Visit: BILATERAL PULMONARY EMBOLI Diagnosis Discharge Diagnosis (1) Pulmonary embolism, bilateral: Status: Acute Code(s): I26.99 - Other pulmonary embolism without acute cor pulmonale (2) Hyperkalemia: Status: Acute Code(s): E87.5 - Hyperkalemia (3) Severe malnutrition: Status: Acute Code(s): E43 - Unspecified severe protein-calorie malnutrition Medications at Discharge Home Medications enoxaparin 60 mg/0.6 mL subcutaneous syringe (Lovenox) 70 mg (0.7 mL) subcut Q12H #6 mL 05/31/23 Hospital Course Operations None Procedures EKG and - (Chest x-ray/CTA of the chest) Summary of Care Provided Minutes Spent on Discharge: 36 Hospital Course: Mrs. Dsouza is a 77-year-old female who was sent to the emergency department at [facility] on 05/29/2023 from a local extended care facility due to increased confusion, lethargy, and shortness of breath. The patient has been in long term for approximately 2 weeks. She was recently in the hospital and [place], [place] for several days due to a complicated UTI and was [facility] the [facility]. Patient has a history of dementia according to her daughters. Her dementia has been progressive over the last 8 years and family wished that no extensive testing be performed on their mother but they did want her treated for any acute medical issues. It sounded as if she has had significant failure to thrive over the last several months. She had not been eating well and her overall function had been declining. Her daughter indicated on multiple occasions she indicated she was ready to and go see [facility]. Upon presentation, her temperature was 98.2, heart rate 110, blood pressure 132/72, respiratory rate 18 and oxygen saturations were 96% on 2 L. There is no documentation of room air oxygen saturation. Her CBC shows no white count but does have a mild left shift with a 76.4% neutrophilia. Hemoglobin is normal however her MCV is low indicating her cytosis and her platelet count is 106,000. Her chemistry panel showed hyperkalemia which has resolved with hydration, elevated BUN at 37, elevated transaminases with total bilirubin of 2.2, AST at 122, ALT of 124 and an alk phos of 514. Her ammonia level is normal. Her albumin is 1.7. D-dimer was found to be slightly elevated and CTA of her chest was performed. This showed saddle embolus with lobar and segmental pulmonary emboli, small bilateral pleural effusions and pulmonary opacities bilaterally with few possible small infarcts. She was started on a heparin drip and admitted to PCU. Extensive discussion was had with the family with regards to her lab abnormalities and her decreased p.o. intake. Family did not want to pursue any other aggressive testing with regards to her liver enzymes or cardiac function and did not want to pursue a temporary or permanent feeding tube. She was maintained on a heparin drip and hospice was consulted as they were amenable to hospice discussion. They met with hospice on 05/30/2023 and agreed to hospice and signed papers. She will be discharged back to the skilled facility with hospice care on 05/31/2023. We will continue her Lovenox but all other medications will be discontinued. Patient was fairly somnolent and not eating throughout her hospital stay. Discharge diagnoses: Saddle and extensive bilateral pulmonary emboli Shortness of breath Hyperkalemia-resolved Severe malnutrition Dysphagia Failure to thrive Debility DM-2 GERD Dementia Depression Thyroid nodules Transaminitis Physical Exam Const no apparent distress; Negative for well nourished Constitutional Narrative: Thin, older white female lying in bed sleeping, patient quite somnolent at this time but withdraws to tactile stimulus, appears comfortable and nontoxic currently, appears chronically ill General Appearance: well kempt and well developed Orientation / Consciousness: lethargic Exam Limitations: altered mental status Nutritional Appearance: thin HEENT normocephalic and head/scalp atraumatic Neck no lymphadenopathy and supple Neck Narrative: Trachea midline, no thyroid enlargement Resp normal respiratory effort, no retractions, no use of accessory muscles and clear to auscultation bilaterally Resp Narrative: Decreased breath sounds at the bases are noted bilaterally, shallow breathing overall Auscultation: Negative for rales, rhonchi or wheezes Cardio regular rate, regular rhythm, S1 normal heart sound, S2 normal heart sound, no murmurs, no rub, no gallops and no clicks GI normal to inspection, nondistended, normoactive bowel sounds, soft to palpation and non-tender Extremity Extremity Narrative: No clubbing or cyanosis, 2+ bilateral lower extremity doughy pitting edema Skin Skin Narrative: Patient has a breakdown of 3 small areas on the sacral area, these appear to be pressure injuries and are stage II, the largest 1 of which is approximately 2 cm in diameter, there are 2 smaller ones that are approximately 1 cm in diameter, there is no discharge noted from the areas Neuro Neuro Narrative: Unable to adequately examine as patient is quite somnolent Psych Psych Narrative: Patient is confused and lethargic Medical Records Data Medical Nutrition Assessment Dietitian: Malnutrition Criteria Met Start: 05/30/23 12:09 Freq: Status: Active Protocol: Document 05/30/23 12:09 (Rec: 05/30/23 12:09 [id number]) Nutrition Malnutrition Evidence of Malnutrition Exists Yes Malnutrition (moderate): Chronic Evidenced By Suboptimal Energy Intake ( Moderate),Physical Changes ( Moderate) Clinical Problem Chronic Disease or Condition Related Malnutrition Etiology moderate, chronic malnutrition related to inadequate energy intake d/t dementia Signs/Symptoms as evidenced by moderate muscle wasting/fat loss evident in orbital, clavicle, acromion and temporal areas, estimated PO intake meeting < 75% of estimated energy needs Status Active Problem Recommendation Dietitian Recommendations/Changes Recommend regular diet- texture/consistency per PAPERBOARD MACHINE OPERATOR; continue Ensure Plus High Protein 120mL 4x/day w/ medpass when PO diet is advanced. Weight / BMI Weight Weight: 68.4 kg Body Mass Index (BMI) 24.3 ABG / Lab / Microbiology Data 05/30/23 05:00 05/30/23 05:00 Laboratory: Laboratory Results - last 24 hr 05/29/23 12:00: Urine Color Ivy, Urine Clarity Sl. Cloudy, Urine pH 5.0, Ur Specific Rickman 1.020, Urine Protein 30 H, Urine Glucose (UA) 50 H, Urine Ketones 5 H, Urine Occult Blood Negative, Urine Nitrite Negative, Urine Bilirubin 1 H, Urine Urobilinogen 1 H, Ur Leukocyte Esterase 100 H, Urine RBC 0 SEEN, Urine WBC 0-5 SEEN, Ur Squamous Epith Cells 0-5 SEEN, Calcium Oxalate Crystal 1+, Urine Bacteria 1+, Urine Mucus 1+ 05/30/23 14:35: APTT 154.9 H* 05/30/23 16:03: POC Glucose 167 H 05/30/23 21:50: POC Glucose 164 H 05/31/23 00:15: APTT 62.5 H 05/31/23 05:47: POC Glucose 165 H 05/31/23 07:10: APTT 58.8 H 05/31/23 10:58: POC Glucose 181 H Microbiology: Microbiology 05/29/23 12:00 Urine, Catheterized Urine Culture - Preliminary Meth. resistant Staph. aureus GPC Poss Enterococcus sp 05/29/23 20:50 Stool C. difficile DNA Amplification - Final 05/29/23 20:50 Stool Enteric Bacteriology - Final 05/29/23 12:20 Nasal Secretion SARS-CoV-2 & FLU Antigen (Rapid) - Final D/C Instructions Discharge Diet: No restrictions Meaningful Use Info Meaningful Use Diagnoses (Choose all that apply): None applicable Discharge Plan Admission Admit Date/Time: 05/29/23 17:35 Primary Reason for Your Visit: Lethargy/confusion/shortness of breath Attending Provider: Aleja Freeman Primary Care Provider: Corazon Sharp Consulting Providers: Santos Horton; Ankur Menjivar; Jessica Mejia; Maeve Mojica; Eliza Carr INDIVIDUAL SMALL GROUP INSTRUCTOR Discharge Orders/Prescriptions Prescriptions: New enoxaparin [Lovenox] 60 mg/0.6 mL syringe 70 mg subcut Q12H Qty: 6 0RF Discontinued donepezil 10 mg tablet 10 mg PO QHS Patient Comments: TAKE 1 TABLET BY MOUTH ONCE DAILY AT 9 PM BEDTIME oxybutynin chloride 10 mg tablet extended release 24hr 10 mg PO DAILY aluminum-magnesium hydroxide 225-200 mg/5 mL suspension 30 ml PO Q4H PRN Patient Comments: PRN PER ECF fluoxetine 40 mg capsule 40 mg PO BID insulin lispro [Humalog KwikPen Insulin] 100 unit/mL insulin pen See Protocol subcut ACHS Protocol: 6. Sliding Scale Insulin Custom Condition: mg/dl range Dose/Route: Number of Units Condition: 151-200 Dose/Route: 2 Condition: 201-250 Dose/Route: 4 Condition: 251-300 Dose/Route: 6 Condition: 301-350 Dose/Route: 8 Condition: 351-400 Dose/Route: 10 Condition: >400 Instruction: NOTIFY MD Protocol Text: Custom Sliding Scale nystatin 100,000 unit/mL suspension 400,000 unit PO DAILY Patient Comments: PER ECF X10 DAYS 05/22/23 THROUGH 06/01/23 pantoprazole 40 mg tablet,delayed release (DR/EC) 40 mg PO DAILY potassium chloride [K-Tab] 10 mEq tablet extended release 20 meq PO DAILY Patient Comments: PER ECF X7 DAYS 05/27/23 THROUGH 06/03/2023 mirtazapine [Remeron] 15 mg tablet 7.5 mg PO QHS sodium chloride 1,000 mg tablet,soluble 1,000 mg PO DAILY Patient Comments: PER ECF X7 DAYS 05/23/23 THROUGH 05/30/23 Stress Formula with Zinc Tablet 1 tab PO DAILY Patient Comments: PER ECF X14 DAYS 05/17/23 THROUGH 05/31/23 multivitamin,tx-minerals Tablet 1 tab PO DAILY Patient Comments: PER ECF THERAGRAN-M ascorbic acid (vitamin C) 500 mg tablet 500 mg PO DAILY ondansetron 4 mg tablet,disintegrating 4 mg PO Q8H PRN (Reason: nausea and vomiting) Referrals / Follow Up: Kate An MD [Non-Staff -Ordering Privileges] - Corazon Sharp DO [Primary Care Provider] - Disposition Disposition (needs filled in before D/C Order can be placed): Hospice in Medical Facility Charges/Coding Visit Charges Inpatient E&M: 52283 SNF Disch >30 Min
[2023-05-31 13:44] LABS: Partial Thromboplast Time 60.7 Seconds (24.1-36.2)
[2023-05-31 14:40] VITALS: BP 137/74; PULSE 105; RESP 18; TEMP 36.8; O2SAT 91
--- NOTE | 2023-05-31 14:43 | CASEMGMT ---
BARBIE completed a Medicaid application with patient's daughter February. BARBIE faxed application to [employer]. BARBIE notified Flower at Hospice as well. Plan: d/c back to [facility] under intermediate level of care on [facility]. Physicians will transport patient via cot. Palma SMITH
[2023-05-31] MEDS: Enoxaparin 80 MG/0.8 ML Syringe 70 MG SC (14:46)
--- NOTE | 2023-05-31 14:55 | TREXTCAR_ITS ---
Diet Diet Order/Speech Therapy: 05/30/23 07:38 NPO [Diet: Nothing Per Oral] Is pt able to select menu?: No Routine Orders/Code Status Suppository Frequency: Daily PRN O2 Liters per Minute: Use as needed for comfort O2 Frequency: PRN Code Status: DNRCC Wound(s) MONICA BUTTOCKS: Wound Type: Pressure Injury Dressing Change: Mepilex ARMS & LEGS: Wound Type: scabs Problem/Diagnosis (1) Pulmonary embolism, bilateral: Status: Acute Code(s): I26.99 - Other pulmonary embolism without acute cor pulmonale (2) Hyperkalemia: Status: Acute Code(s): E87.5 - Hyperkalemia (3) Severe malnutrition: Status: Acute Code(s): E43 - Unspecified severe protein-calorie malnutrition Allergies/Procedures Done in Hospital Allergies No Known Allergies Allergy (Verified 05/29/23 16:23) Type of Care/Length of Stay Estimated LOS: More Than 30 Days Type of Care Needed: Inpt Hospice Facility Rehab Potential: Poor Prognosis: Poor Additional Orders/Day of Discharge Additional Orders: Patient will be admitted to hospice Day of Discharge: 05/31/23 Dietary and Speech Recommendations Dietitian Recommendations/Changes: Recommend regular diet Discharge Plan Admission Admit Date/Time: 05/29/23 17:35 Primary Reason for Your Visit: Lethargy/confusion/shortness of breath Attending Provider: Aleja Freeman Primary Care Provider: Corazon Sharp Consulting Providers: Santos Horton; Ankur Menjivar; Jessica Mejia; Maeve Mojica; Eliza Carr BREAKER UP MACHINE OPERATOR Discharge Orders/Prescriptions Prescriptions: New enoxaparin [Lovenox] 60 mg/0.6 mL syringe 70 mg subcut Q12H Qty: 6 0RF Discontinued donepezil 10 mg tablet 10 mg PO QHS Patient Comments: TAKE 1 TABLET BY MOUTH ONCE DAILY AT 9 PM BEDTIME oxybutynin chloride 10 mg tablet extended release 24hr 10 mg PO DAILY aluminum-magnesium hydroxide 225-200 mg/5 mL suspension 30 ml PO Q4H PRN Patient Comments: PRN PER ECF fluoxetine 40 mg capsule 40 mg PO BID insulin lispro [Humalog KwikPen Insulin] 100 unit/mL insulin pen See Protocol subcut ACHS Protocol: 6. Sliding Scale Insulin Custom Condition: mg/dl range Dose/Route: Number of Units Condition: 151-200 Dose/Route: 2 Condition: 201-250 Dose/Route: 4 Condition: 251-300 Dose/Route: 6 Condition: 301-350 Dose/Route: 8 Condition: 351-400 Dose/Route: 10 Condition: >400 Instruction: NOTIFY MD Protocol Text: Custom Sliding Scale nystatin 100,000 unit/mL suspension 400,000 unit PO DAILY Patient Comments: PER ECF X10 DAYS 05/22/23 THROUGH 06/01/23 pantoprazole 40 mg tablet,delayed release (DR/EC) 40 mg PO DAILY potassium chloride [K-Tab] 10 mEq tablet extended release 20 meq PO DAILY Patient Comments: PER ECF X7 DAYS 05/27/23 THROUGH 06/03/2023 mirtazapine [Remeron] 15 mg tablet 7.5 mg PO QHS sodium chloride 1,000 mg tablet,soluble 1,000 mg PO DAILY Patient Comments: PER ECF X7 DAYS 05/23/23 THROUGH 05/30/23 Stress Formula with Zinc Tablet 1 tab PO DAILY Patient Comments: PER ECF X14 DAYS 05/17/23 THROUGH 05/31/23 multivitamin,tx-minerals Tablet 1 tab PO DAILY Patient Comments: PER ECF THERAGRAN-M ascorbic acid (vitamin C) 500 mg tablet 500 mg PO DAILY ondansetron 4 mg tablet,disintegrating 4 mg PO Q8H PRN (Reason: nausea and vomiting) Referrals / Follow Up: Kate An MD [Non-Staff -Ordering Privileges] - Corazon Sharp DO [Primary Care Provider] - Disposition Disposition (needs filled in before D/C Order can be placed): Hospice in Medical Facility
--- NOTE | 2023-05-31 15:10 | CASEMGMT ---
Discharge Planning Discharge orders, signed med list, and transport time sent to [facility] via [facility]. [facility] will transport patient by cot at 5:30p. Nursing, SW, and patients daughter updated. Discharge orders and signed med list faxed to [facility]. Aleksandra Alcaraz, Discharge Planning Asst.
--- NOTE | 2023-05-31 15:56 | NURSING ---
Report called to nurse at [facility]
[2023-05-31 17:49] VITALS: BP 118/68; PULSE 94; RESP 18; TEMP 37.1; O2SAT 93
== END 2023-05-31 18:59 | disposition hospice, inpatient (51) | DRG 175 ==
LOC: ED 15:47 → MS3 17:22 → PCU 18:02
PROVIDERS: Emergency Medicine; Admitting Provider Internal Medicine; Emergency Provider Emergency Medicine; PCP Family Medicine; Visit Provider Internal Medicine
DX: I26.92 Saddle embolus of pulmonary artery without acute cor pulmonale (principal); E43 Unspecified severe protein-calorie malnutrition; L89.159 Pressure ulcer of sacral region, unspecified stage; R62.7 Adult failure to thrive; F03.90 Unspecified dementia, unspecified severity, without behavioral disturbance, psychotic disturbance, mood disturbance, and anxiety; E11.9 Type 2 diabetes mellitus without complications; Z79.4 Long term (current) use of insulin; F32.A Depression, unspecified; E04.2 Nontoxic multinodular goiter; E78.5 Hyperlipidemia, unspecified; E87.5 Hyperkalemia; K21.9 Gastro-esophageal reflux disease without esophagitis; R41.82 Altered mental status, unspecified; Z79.01 Long term (current) use of anticoagulants; Z66 Do not resuscitate; R53.81 Other malaise; Z51.5 Encounter for palliative care; R13.10 Dysphagia, unspecified; R74.01 Elevation of levels of liver transaminase levels; Z68.24 Body mass index [BMI] 24.0-24.9, adult
CPT/HCPCS: 36415; 70450; 71045; 71275; 74176; 80048; 80053; 81001; 82140; 82962; 83605; 83690; 83880; 84484; 85025; 85379; 85730; 87040; 87077; 87086; 87088; 87186; 87428; 87493; 87506; 92610; 93005; 97802; 99252; 99285; J7030; J7050; Q9967; A4216; G0463